=== PATIENT | female | born 1950 | race Caucasian/White ===

== ENCOUNTER → 2017-10-16 08:40 | Outpatient (CLI) | payer MEDICARE, BC, SELFPAY ==
[2017-10-16 10:02] LABS: Add Manual Diff / Slide Review NO; Basophils Percent Auto 0.8 % (0-2); Eosinophils Percent Auto 2.1 % (2-4); Hematocrit 43.1 % (36-46); Hemoglobin 14.8 g/dL (12.0-16.0); Mean Corpuscular HGB Conc 34.3 % (30-36); Mean Corpuscular Hemoglobin 31.3 PG (26-34); Monocytes Percent Auto 8.3 % (3-14); Neutrophils Absolute Auto 4700 /uL (3000-5900); Neutrophils Percent Auto 62.8 % (50-75); Platelet Count 256 X10^3/uL (150-400); Red Blood Cell Count 4.73 X10^6/uL (4.0-5.2); Red Cell Distribution Width 13.5 % (11.6-14.8); White Blood Cell Count 7.5 X10^3/uL (4.5-11.0)
[2017-10-16 10:34] LABS: Cholesterol 172 mg/dL (140-199); HDL Cholesterol 42 mg/dL (40-60); LDL Cholesterol Calculated 103 mg/dL (<100); Triglycerides 137 mg/dL (35-150)
[2017-10-16 10:46] LABS: Vitamin D 25 Hydroxy (D3) 38.7 ng/mL (30.0-100.0)
[2017-10-16 10:59] LABS: TSH w/ Reflex to FT4 2.27 uIU/mL (0.47-4.68)
== END ==
PROVIDERS: PCP Internal Medicine; Visit Provider Internal Medicine
DX: Z78.0 Asymptomatic menopausal state (principal); Z13.820 Encounter for screening for osteoporosis; Z00.00 Encounter for general adult medical examination without abnormal findings; R53.83 Other fatigue; L65.9 Nonscarring hair loss, unspecified
CPT/HCPCS: 36415; 77080; 80061; 82306; 84443; 85025

== ENCOUNTER → 2017-10-25 12:26 | Outpatient (CLI) | payer MEDICARE, BC, SELFPAY ==
--- NOTE | 2017-10-25 | DI.MG.S_ITS ---
BILATERAL DIGITAL SCREENING MAMMOGRAM 3D/2D WITH CAD: 10/25/2017 CLINICAL: Routine screening. Family history of breast cancer. Comparison is made to exams dated: 10/11/2016 mammogram, 09/02/2015 mammogram, and 08/17/2013 mammogram - [facility]. The tissue of both breasts is heterogeneously dense. This may lower the sensitivity of mammography. Current study was also evaluated with a Computer Aided Detection (CAD) system. No significant masses, calcifications, or other findings are seen in either breast. There has been no significant interval change. IMPRESSION: NEGATIVE There is no mammographic evidence of malignancy. A 1 year screening mammogram is recommended. This exam was interpreted at Station ID: [id number]. NOTE: For mammograms, a report in lay terms will be sent to the patient. Approximately 15% of breast malignancies will not be visualized mammographically. In the management of a palpable breast mass, a negative mammogram must not discourage biopsy of a clinically suspicious lesion. Electronically Signed By: Diogenes burrows/jason:10/25/2017 15:09:07 letter sent: Normal Exam ACR BI-RADS Category 1: Negative [id number]
== END ==
PROVIDERS: PCP Internal Medicine; Visit Provider Internal Medicine
DX: Z12.31 Encounter for screening mammogram for malignant neoplasm of breast (principal); Z80.3 Family history of malignant neoplasm of breast
CPT/HCPCS: 77063; 77067

== ENCOUNTER 2018-06-26 11:15 | Outpatient (RCR) | payer MEDICARE, BC, SELFPAY ==
--- NOTE | 2018-04-23 17:00 | PT.OIE ---
Current Diagnoses Achilles tendinitis, left leg (04/23/18) Provider Visit Care Team Role Provider Type Tea Alanis MD Primary Care Provider Physician Specialty: Internal Medicine Address: [address] [place] [address], [address] Email: Sofy Triplett DPM Attending Provider Non-Staff Specialty: Podiatry Address: [address] [place], [address] Email: Physical Therapy Initial Evaluation PT-OP-A Visit Information Start: 04/23/18 07:57 Freq: Status: Active Protocol: Document 04/23/18 08:19 SAK (Rec: 04/23/18 09:03 SAK [id number]) Out-Patient Physical Therapy Visit Information Visit Information Visit Type Initial Evaluation Visit Start Time 08:25 Visit Stop Time 09:18 Total Visit Minutes 48 Visit Number 1 Number of ANESTHESIOLOGY PHYSICIAN Visits 0 PT-OP-B Current Condition Start: 04/23/18 07:57 Freq: Status: Active Protocol: Document 04/23/18 08:19 SAK (Rec: 04/23/18 09:03 SAK [id number]) Current Condition History of Current Condition Onset Date 1 yr Current Complaints left heel pain History of Current Condition gradual onset function- limiting left heel pain which patient reports seemed to come on while she was on vacation which included a lot of walking and hiking. Pain improved with injection but has gradually returned. Has been resting, wearing shoes without backs. Initially reports she did lots of icing and stretching as recommended but not much recently due to uncertainty about whether it was helping. States limping due to heel pain has increased her back pain. Frustrated by persistent pain. Prior Treatments and Tests Injection left heel 12/11 with improvement but gradual return of pain. Wore boot for 1 month, now wears night splint. No squattingl, lunges,, stairs, or hills per physician recommendation. Went to [facility] for scraping therapy without benefit. Wearing heel lifts and heel pads . Also wears soft ankle brace at times which she reports is of some benefit. Treatment Goals Patient/Caregiver Goals Minimize pain and return to more active lifestyle Prior Functional Status Baseline Function- ADL's Independent Baseline Function- Mobility Independent Baseline Function- Gait independent, minimal pain Current Functional Impairments (Reported) Functional Limitations- ADL's painful Functional Limitations- Mobility/Gait painful, no elevation, limited distance Personal Factors Other Personal Factors That May Effect LBP, shoulder fracture 08/11. Therapy/Recovery PT-OP-G Mobility & Gait Start: 04/23/18 07:57 Freq: Status: Active Protocol: Document 04/23/18 08:19 SAK (Rec: 04/23/18 16:55 [facility] [id number]) OP Gait Assessment Gait Gait Assistance Required: Independent Assistive Devices Assistive Device None Gait Deviations General Gait Pattern Antalgic Factors Limiting Gait Function Factors Limiting Gait Function Limited Range of Motion Pain PT-OP-J Posture/Palpation/Skin Start: 04/23/18 07:57 Freq: Status: Active Protocol: Document 04/23/18 08:19 SAK (Rec: 04/23/18 16:57 SAK [id number]) Palpation Assessment Location left achilles Palpation Findings Tenderness Palpation Details TTP Achilles insertion, posterior to medial malleolus PT-OP-K Range of Motion Start: 04/23/18 07:57 Freq: Status: Active Protocol: Document 04/23/18 08:19 SAK (Rec: 04/23/18 16:55 [facility] [id number]) Knee Goniometric Range of Motion Knee ROM Limitations Comments WNL tyler Ankle and Foot Goniometric Range of Motion Ankle and Foot Measured in Degrees Left Ankle/Foot ROM WFL No Testing Position Sitting Dorsiflexion with Knee Flexed 0 Dorsiflexion with Knee Extended 5 Plantarflexion 55 Inversion 25 Eversion 20 right Testing Position Sitting Dorsiflexion with Knee Flexed 10 Dorsiflexion with Knee Extended 5 Plantarflexion 55 Inversion 25 Eversion 20 Ankle and Foot ROM Limitations ROM Limitations Soft Tissue Tightness Pain PT-OP-M Strength Start: 04/23/18 07:57 Freq: Status: Active Protocol: Document 04/23/18 08:19 SAK (Rec: 04/23/18 16:58 SAK [id number]) Ankle/Foot Strength Ankle and Foot Manual Muscle Testing Left Dorsiflexion (L4) 4+ Good+ Plantarflexion (S1) 4 Good Inversion 4 Good Eversion (S1) 4 Good Reason Not Measured Pain Right Dorsiflexion (L4) 5 Normal Plantarflexion (S1) 5 Normal Inversion 5 Normal Eversion (S1) 5 Normal PT-OP-Q Treatments Start: 04/23/18 07:57 Freq: Status: Active Protocol: Document 04/23/18 08:19 [facility] (Rec: 04/23/18 16:53 [facility] [id number]) Self-Care/Home Management Treatment Education Patient Education Home Exercise Program Pain Management Other Education Issued written HEP Activities Self-Care/Home Management Activities Increase icing, consider contrast baths PT-OP-R Modalities Start: 04/23/18 07:57 Freq: Status: Active Protocol: Document 04/23/18 08:19 [facility] (Rec: 04/23/18 16:53 [facility] [id number]) Hot Pack/Cold Pack Treatment cryocuff Location left foot/ankle Patient Position Hooklying Treatment Duration (minutes) 10 Patient Tolerance Good Iontophoresis Treatment Left Ankle Treatment Medication Dexamethasone (-) Medication Amount (mL) (ml) 1 Medication Dosage 4mg/ml Active Electrode Placement left Achilles insertion Treatment Duration (minutes) 3 Ultrasound Therapy Treatment left achilles Treatment Duration (minutes) 8 Patient Position Sidelying Coupling Medium Ultrasound Gel Frequency Setting (mHz) 1 Mode Setting Pulsed Duty Cycle 50% Intensity Setting (w/cm2) 1.0 PT-OP-T Assessment and Plan Start: 04/23/18 07:57 Freq: Status: Active Protocol: Document 04/23/18 08:19 [facility] (Rec: 04/23/18 16:53 [facility] [id number]) Physical Therapy Assessment Rehab Potential Rehabilitation Potential Excellent Evaluation Complexity Number of Personal Factors/Comorbidities 1-2 Number of Body Systems Impaired 3 Clinical Presentation at Evaluation Evolving Impairments Impairments Activity Tolerance Gait Pain ROM Goals Pain Impairment 8/10 Short Term Goal (STG) decrease pain to no greater than 4/10 STG Duration 6 wks Mcc Goal (LTG) decrease pain to no greater than 1/10 LTG Duration 3 months ROM Impairment left ankle df 0 deg Short Term Goal (STG) instruct patient in achilles stretching ex STG Duration 3 wks Mcc Goal (LTG) patient to demonstrate left ankle df 10 degrees LTG Duration 3 months Gait Impairment antalgic Short Term Goal (STG) Patient able to ambulate on level surfaces without limp STG Duration 6 wks Mcc Goal (LTG) patient able to ambulate on level and uneven surfaces for usual distances without limp LTG Duration 3 months Activity tolerance Impairment Unable to do usual activities due to pain Mcc Goal (LTG) Patient able to resume all usual activities with minimal to no pain LTG Duration 3 months Assessment Summary Assessment Patient presents with function -limiting pain left Achilles with signs and symptoms indicative of Achilles tendonitis with MRI showing distal Achilles tendinopathy and retrocalcaneal bursitis, longitudinal split tear of peroneus brevis tendon at retromalleolar groove, small heterotopic ossification deltoid ligament fibers. Mild decrease in strength in left ankle inversion and eversion as well as shortening at left Achilles tendon noted. Feel she would benefit from PT to address above impairments and limitations. Physical Therapy Plan Frequency and Duration Frequency of Treatment 2x/Week Duration of Treatment 3 months Plan of Care Start Date 04/23/18 Plan of Care End Date 07/24/18 Therapeutic Interventions Therapeutic Interventions Aquatic Therapy Gait Training Home Exercise Program Manual Therapy Neuromuscular Re-education Patient/Caregiver Education Self-Care/Home Management Taping Therapeutic Activities Therapeutic Exercises Modalities Cold Pack/Ice Massage Electric Stimulation Hot Packs Infrared Therapy Iontophoresis Ultrasound Next Visit Focus/Plan Next Note Type Treatment Note Next Visit Plan Start session with moist heat. Assess response to first PT treatment. Initiate kinesiotape, manual treatment of achilles with gentle stretching. Possible ice massage.
--- NOTE | 2018-04-23 17:00 | PT.OPPOC ---
Current Diagnoses Achilles tendinitis, left leg (04/23/18) Provider Visit Care Team Role Provider Type Tea Alanis MD Primary Care Provider Physician Specialty: Internal Medicine Address: [address] [place] [address], [id number] Email: Sofy Triplett DPM Attending Provider Non-Staff Specialty: Podiatry Address: [address] [place], [address] Email: Plan Of Care PT-OP-T Assessment and Plan Start: 04/23/18 07:57 Freq: Status: Active Protocol: Document 04/23/18 08:19 CAROLE (Rec: 04/23/18 16:53 [facility] [id number]) Physical Therapy Assessment Rehab Potential Rehabilitation Potential Excellent Evaluation Complexity Number of Personal Factors/Comorbidities 1-2 Number of Body Systems Impaired 3 Clinical Presentation at Evaluation Evolving Impairments Impairments Activity Tolerance Gait Pain ROM Goals Pain Impairment 8/10 Short Term Goal (STG) decrease pain to no greater than 4/10 STG Duration 6 wks Prison Goal (LTG) decrease pain to no greater than 1/10 LTG Duration 3 months ROM Impairment left ankle df 0 deg Short Term Goal (STG) instruct patient in achilles stretching ex STG Duration 3 wks Prison Goal (LTG) patient to demonstrate left ankle df 10 degrees LTG Duration 3 months Gait Impairment antalgic Short Term Goal (STG) Patient able to ambulate on level surfaces without limp STG Duration 6 wks Prison Goal (LTG) patient able to ambulate on level and uneven surfaces for usual distances without limp LTG Duration 3 months Activity tolerance Impairment Unable to do usual activities due to pain Prison Goal (LTG) Patient able to resume all usual activities with minimal to no pain LTG Duration 3 months Assessment Summary Assessment Patient presents with function -limiting pain left Achilles with signs and symptoms indicative of Achilles tendonitis with MRI showing distal Achilles tendinopathy and retrocalcaneal bursitis, longitudinal split tear of peroneus brevis tendon at retromalleolar groove, small heterotopic ossification deltoid ligament fibers. Mild decrease in strength in left ankle inversion and eversion as well as shortening at left Achilles tendon noted. Feel she would benefit from PT to address above impairments and limitations. Physical Therapy Plan Frequency and Duration Frequency of Treatment 2x/Week Duration of Treatment 3 months Plan of Care Start Date 04/23/18 Plan of Care End Date 07/24/18 Therapeutic Interventions Therapeutic Interventions Aquatic Therapy Gait Training Home Exercise Program Manual Therapy Neuromuscular Re-education Patient/Caregiver Education Self-Care/Home Management Taping Therapeutic Activities Therapeutic Exercises Modalities Cold Pack/Ice Massage Electric Stimulation Hot Packs Infrared Therapy Iontophoresis Ultrasound Next Visit Focus/Plan Next Note Type Treatment Note Next Visit Plan Start session with moist heat. Assess response to first PT treatment. Initiate kinesiotape, manual treatment of achilles with gentle stretching. Possible ice massage. Plan of Care Dates Plan of Care Start Date 04/23/18 Plan of Care End Date 07/24/18 Please Sign and Return: I have reviewed this Plan of Care and certify that the skilled therapy services above are required to meet the patient?s needs. Physician Signature Date Printed Name and Credentials Clinical Instructor Signature Printed Name and Credentials
--- NOTE | 2018-04-25 08:57 | PT.OTN ---
Current Diagnoses Achilles tendinitis, left leg (04/25/18) Physical Therapy Treatment Note PT-OP-A Visit Information Start: 04/23/18 07:57 Freq: Status: Active Protocol: Document 04/25/18 08:12 SAK (Rec: 04/25/18 08:56 [facility] [id number]) Out-Patient Physical Therapy Visit Information Visit Information Visit Type Treatment Note Visit Start Time 08:13 Visit Stop Time 08:59 Total Visit Minutes 46 Visit Number 2 Number of WATER USE INSPECTOR Visits 0 PT-OP-B Current Condition Start: 04/23/18 07:57 Freq: Status: Active Protocol: Document 04/23/18 08:19 SAK (Rec: 04/23/18 09:03 SAK [id number]) Current Condition History of Current Condition Onset Date 1 yr Current Complaints left heel pain History of Current Condition gradual onset function- limiting left heel pain which patient reports seemed to come on while she was on vacation which included a lot of walking and hiking. Pain improved with injection but has gradually returned. Has been resting, wearing shoes without backs. Initially reports she did lots of icing and stretching as recommended but not much recently due to uncertainty about whether it was helping. States limping due to heel pain has increased her back pain. Frustrated by persistent pain. Prior Treatments and Tests Injection left heel 12/11 with improvement but gradual return of pain. Wore boot for 1 month, now wears night splint. No squattingl, lunges,, stairs, or hills per physician recommendation. Went to IR for scraping therapy without benefit. Wearing heel lifts and heel pads . Also wears soft ankle brace at times which she reports is of some benefit. Treatment Goals Patient/Caregiver Goals Minimize pain and return to more active lifestyle Prior Functional Status Baseline Function- ADL's Independent Baseline Function- Mobility Independent Baseline Function- Gait independent, minimal pain Current Functional Impairments (Reported) Functional Limitations- ADL's painful Functional Limitations- Mobility/Gait painful, no elevation, limited distance Personal Factors Other Personal Factors That May Effect LBP, shoulder fracture 08/11. Therapy/Recovery PT-OP-C Subjective Start: 04/23/18 07:57 Freq: Status: Active Protocol: Document 04/25/18 08:12 SAK (Rec: 04/25/18 08:56 [facility] [id number]) OP-PT Subjective Patient Comments Patient Comments Decreased pain after first treatment PT-OP-G Mobility & Gait Start: 04/23/18 07:57 Freq: Status: Active Protocol: Document 04/23/18 08:19 SAK (Rec: 04/23/18 16:55 SAK [id number]) OP Gait Assessment Gait Gait Assistance Required: Independent Assistive Devices Assistive Device None Gait Deviations General Gait Pattern Antalgic Factors Limiting Gait Function Factors Limiting Gait Function Limited Range of Motion Pain PT-OP-J Posture/Palpation/Skin Start: 04/23/18 07:57 Freq: Status: Active Protocol: Document 04/23/18 08:19 SAK (Rec: 04/23/18 16:57 SAK [id number]) Palpation Assessment Location left achilles Palpation Findings Tenderness Palpation Details TTP Achilles insertion, posterior to medial malleolus PT-OP-K Range of Motion Start: 04/23/18 07:57 Freq: Status: Active Protocol: Document 04/23/18 08:19 SAK (Rec: 04/23/18 16:55 SAK [id number]) Knee Goniometric Range of Motion Knee ROM Limitations Comments WNL tyler Ankle and Foot Goniometric Range of Motion Ankle and Foot Measured in Degrees Left Ankle/Foot ROM WFL No Testing Position Sitting Dorsiflexion with Knee Flexed 0 Dorsiflexion with Knee Extended 5 Plantarflexion 55 Inversion 25 Eversion 20 right Testing Position Sitting Dorsiflexion with Knee Flexed 10 Dorsiflexion with Knee Extended 5 Plantarflexion 55 Inversion 25 Eversion 20 Ankle and Foot ROM Limitations ROM Limitations Soft Tissue Tightness Pain PT-OP-M Strength Start: 04/23/18 07:57 Freq: Status: Active Protocol: Document 04/23/18 08:19 SAK (Rec: 04/23/18 16:58 SAK [id number]) Ankle/Foot Strength Ankle and Foot Manual Muscle Testing Left Dorsiflexion (L4) 4+ Good+ Plantarflexion (S1) 4 Good Inversion 4 Good Eversion (S1) 4 Good Reason Not Measured Pain Right Dorsiflexion (L4) 5 Normal Plantarflexion (S1) 5 Normal Inversion 5 Normal Eversion (S1) 5 Normal PT-OP-Q Treatments Start: 04/23/18 07:57 Freq: Status: Active Protocol: Document 04/25/18 08:12 SAK (Rec: 04/25/18 08:56 SAK [id number]) Cardio Equipment Recumbent Elliptical (Biodex) Duration (Minutes) 5 Resistance 4 Seat Position 9 Therapeutic Exercises Sitting Exercises foot ev Resistance L2 TB Reps/Minutes 10 foot inv Resistance L2 TB Reps/Minutes 10 HC stretch Comments knee bent, knee straight with strap Manual Therapy Treatment Soft Tissue Mobilization gastroc, soleus Body Location left gastroc, soleus Mobilization Type Rolling Strumming Intensity/Depth Moderate Body Position right sidelying PT-OP-R Modalities Start: 04/23/18 07:57 Freq: Status: Active Protocol: Document 04/25/18 08:12 [facility] (Rec: 04/25/18 08:56 [facility] [id number]) Hot Pack/Cold Pack Treatment cryocuff Location left foot/ankle Patient Position Hooklying Treatment Duration (minutes) 10 Patient Tolerance Good Iontophoresis Treatment Left Ankle Treatment Medication Dexamethasone (-) Medication Amount (mL) (ml) 1 Medication Dosage 4mg/ml Active Electrode Placement left Achilles insertion Treatment Duration (minutes) 3 Ultrasound Therapy Treatment left achilles Treatment Duration (minutes) 8 Patient Position Sidelying Coupling Medium Ultrasound Gel Frequency Setting (mHz) 1 Mode Setting Pulsed Duty Cycle 50% Intensity Setting (w/cm2) 1.0 PT-OP-T Assessment and Plan Start: 04/23/18 07:57 Freq: Status: Active Protocol: Document 04/25/18 08:12 [facility] (Rec: 04/25/18 08:56 [facility] [id number]) Physical Therapy Assessment Goals Pain Impairment 8/10 Short Term Goal (STG) decrease pain to no greater than 4/10 STG Duration 6 wks Half-Way Goal (LTG) decrease pain to no greater than 1/10 LTG Duration 3 months ROM Impairment left ankle df 0 deg Short Term Goal (STG) instruct patient in achilles stretching ex STG Duration 3 wks Tubing Machine Operator Goal (LTG) patient to demonstrate left ankle df 10 degrees LTG Duration 3 months Gait Impairment antalgic Short Term Goal (STG) Patient able to ambulate on level surfaces without limp STG Duration 6 wks Tubing Machine Operator Goal (LTG) patient able to ambulate on level and uneven surfaces for usual distances without limp LTG Duration 3 months Activity tolerance Impairment Unable to do usual activities due to pain Tubing Machine Operator Goal (LTG) Patient able to resume all usual activities with minimal to no pain LTG Duration 3 months Assessment Summary Assessment Decreased pain with first PT treatment, compliant to HEP, heat and ice as instructed. Wore backless shoes today Physical Therapy Plan Frequency and Duration Frequency of Treatment 2x/Week Duration of Treatment 3 months Plan of Care Start Date 04/23/18 Plan of Care End Date 07/24/18 Therapeutic Interventions Therapeutic Interventions Aquatic Therapy Gait Training Home Exercise Program Manual Therapy Neuromuscular Re-education Patient/Caregiver Education Self-Care/Home Management Taping Therapeutic Activities Therapeutic Exercises Modalities Cold Pack/Ice Massage Electric Stimulation Hot Packs Infrared Therapy Iontophoresis Ultrasound Next Visit Focus/Plan Next Note Type Treatment Note Next Visit Plan Used gentle exerise instead of moist heat for warming of tissues. Good response to first session so stayed with iontohoresis instead of kinesiotape. Reported manual treatment felt good, palpable soft tissue tightness. Initiate gentle balance/ proprioception ex, towel scrunch, short foot ex as toleated.
--- NOTE | 2018-04-29 12:00 | PT.OTN ---
Current Diagnoses Achilles tendinitis, left leg (04/29/18) Physical Therapy Treatment Note PT-OP-A Visit Information Start: 04/23/18 07:57 Freq: Status: Active Protocol: Document 04/29/18 11:15 SAK (Rec: 04/29/18 12:00 [facility] [id number]) Out-Patient Physical Therapy Visit Information Visit Information Visit Type Treatment Note Visit Start Time 11:15 Visit Stop Time 12:00 Total Visit Minutes 46 Visit Number 3 Number of PRINCIPAL ARCHITECT Visits 0 PT-OP-B Current Condition Start: 04/23/18 07:57 Freq: Status: Active Protocol: Document 04/23/18 08:19 SAK (Rec: 04/23/18 09:03 [facility] [id number]) Current Condition History of Current Condition Onset Date 1 yr Current Complaints left heel pain History of Current Condition gradual onset function- limiting left heel pain which patient reports seemed to come on while she was on vacation which included a lot of walking and hiking. Pain improved with injection but has gradually returned. Has been resting, wearing shoes without backs. Initially reports she did lots of icing and stretching as recommended but not much recently due to uncertainty about whether it was helping. States limping due to heel pain has increased her back pain. Frustrated by persistent pain. Prior Treatments and Tests Injection left heel 12/11 with improvement but gradual return of pain. Wore boot for 1 month, now wears night splint. No squattingl, lunges,, stairs, or hills per physician recommendation. Went to IR for scraping therapy without benefit. Wearing heel lifts and heel pads . Also wears soft ankle brace at times which she reports is of some benefit. Treatment Goals Patient/Caregiver Goals Minimize pain and return to more active lifestyle Prior Functional Status Baseline Function- ADL's Independent Baseline Function- Mobility Independent Baseline Function- Gait independent, minimal pain Current Functional Impairments (Reported) Functional Limitations- ADL's painful Functional Limitations- Mobility/Gait painful, no elevation, limited distance Personal Factors Other Personal Factors That May Effect LBP, shoulder fracture 08/11. Therapy/Recovery PT-OP-C Subjective Start: 04/23/18 07:57 Freq: Status: Active Protocol: Document 04/29/18 11:15 SAK (Rec: 04/29/18 12:00 [facility] [id number]) OP-PT Subjective Patient Comments Patient Comments THink it's a little better. PT-OP-G Mobility & Gait Start: 04/23/18 07:57 Freq: Status: Active Protocol: Document 04/23/18 08:19 SAK (Rec: 04/23/18 16:55 SAK [id number]) OP Gait Assessment Gait Gait Assistance Required: Independent Assistive Devices Assistive Device None Gait Deviations General Gait Pattern Antalgic Factors Limiting Gait Function Factors Limiting Gait Function Limited Range of Motion Pain PT-OP-J Posture/Palpation/Skin Start: 04/23/18 07:57 Freq: Status: Active Protocol: Document 04/23/18 08:19 SAK (Rec: 04/23/18 16:57 SAK [id number]) Palpation Assessment Location left achilles Palpation Findings Tenderness Palpation Details TTP Achilles insertion, posterior to medial malleolus PT-OP-K Range of Motion Start: 04/23/18 07:57 Freq: Status: Active Protocol: Document 04/23/18 08:19 SAK (Rec: 04/23/18 16:55 [facility] [id number]) Knee Goniometric Range of Motion Knee ROM Limitations Comments WNL tyler Ankle and Foot Goniometric Range of Motion Ankle and Foot Measured in Degrees Left Ankle/Foot ROM WFL No Testing Position Sitting Dorsiflexion with Knee Flexed 0 Dorsiflexion with Knee Extended 5 Plantarflexion 55 Inversion 25 Eversion 20 right Testing Position Sitting Dorsiflexion with Knee Flexed 10 Dorsiflexion with Knee Extended 5 Plantarflexion 55 Inversion 25 Eversion 20 Ankle and Foot ROM Limitations ROM Limitations Soft Tissue Tightness Pain PT-OP-M Strength Start: 04/23/18 07:57 Freq: Status: Active Protocol: Document 04/23/18 08:19 SAK (Rec: 04/23/18 16:58 SAK [id number]) Ankle/Foot Strength Ankle and Foot Manual Muscle Testing Left Dorsiflexion (L4) 4+ Good+ Plantarflexion (S1) 4 Good Inversion 4 Good Eversion (S1) 4 Good Reason Not Measured Pain Right Dorsiflexion (L4) 5 Normal Plantarflexion (S1) 5 Normal Inversion 5 Normal Eversion (S1) 5 Normal PT-OP-Q Treatments Start: 04/23/18 07:57 Freq: Status: Active Protocol: Document 04/29/18 11:15 SAK (Rec: 04/29/18 12:00 [facility] [id number]) Cardio Equipment Recumbent Elliptical (Biodex) Duration (Minutes) 5 Resistance 4 Seat Position 9 Therapeutic Exercises Sitting Exercises towel scrunch Reps/Minutes 15x BAPS board Sitting Exercise Name fwd/bck, side/side, circles Reps/Minutes 10x Comments L2 foot ev Resistance L2 TB Reps/Minutes 10 foot inv Resistance L2 TB Reps/Minutes 10 HC stretch Comments knee bent, knee straight with strap Manual Therapy Treatment Soft Tissue Mobilization gastroc, soleus Body Location left gastroc, soleus Mobilization Type Rolling Strumming Intensity/Depth Moderate Body Position right sidelying PT-OP-R Modalities Start: 04/23/18 07:57 Freq: Status: Active Protocol: Document 04/29/18 11:15 [facility] (Rec: 04/29/18 12:00 [facility] [id number]) Hot Pack/Cold Pack Treatment cryocuff Location left foot/ankle Patient Position Hooklying Treatment Duration (minutes) 10 Patient Tolerance Good Iontophoresis Treatment Left Ankle Treatment Medication Dexamethasone (-) Medication Amount (mL) (ml) 1 Medication Dosage 4mg/ml Active Electrode Placement left Achilles insertion Treatment Duration (minutes) 3 Ultrasound Therapy Treatment left achilles Treatment Duration (minutes) 8 Patient Position Sidelying Coupling Medium Ultrasound Gel Frequency Setting (mHz) 1 Mode Setting Pulsed Duty Cycle 50% Intensity Setting (w/cm2) 1.0 PT-OP-T Assessment and Plan Start: 04/23/18 07:57 Freq: Status: Active Protocol: Document 04/29/18 11:15 [facility] (Rec: 04/29/18 12:00 [facility] [id number]) Physical Therapy Assessment Goals Pain Impairment 8/10 Short Term Goal (STG) decrease pain to no greater than 4/10 STG Duration 6 wks Patient Care Coordinator Goal (LTG) decrease pain to no greater than 1/10 LTG Duration 3 months ROM Impairment left ankle df 0 deg Short Term Goal (STG) instruct patient in achilles stretching ex STG Duration 3 wks Patient Care Coordinator Goal (LTG) patient to demonstrate left ankle df 10 degrees LTG Duration 3 months Gait Impairment antalgic Short Term Goal (STG) Patient able to ambulate on level surfaces without limp STG Duration 6 wks Senior Care Goal (LTG) patient able to ambulate on level and uneven surfaces for usual distances without limp LTG Duration 3 months Activity tolerance Impairment Unable to do usual activities due to pain Patient Care Coordinator Goal (LTG) Patient able to resume all usual activities with minimal to no pain LTG Duration 3 months Progress Towards Goals Progress Towards Goals Progressing Toward Goals Assessment Summary Assessment Tolerated today's treatment well, compliant with HEP and icing. Physical Therapy Plan Frequency and Duration Frequency of Treatment 2x/Week Duration of Treatment 3 months Plan of Care Start Date 04/23/18 Plan of Care End Date 07/24/18 Therapeutic Interventions Therapeutic Interventions Aquatic Therapy Gait Training Home Exercise Program Manual Therapy Neuromuscular Re-education Patient/Caregiver Education Self-Care/Home Management Taping Therapeutic Activities Therapeutic Exercises Modalities Cold Pack/Ice Massage Electric Stimulation Hot Packs Infrared Therapy Iontophoresis Ultrasound Next Visit Focus/Plan Next Note Type Treatment Note Next Visit Plan Continue PT for pain management, gentle strengthening and flexibility. Add short foot exercise next session.
--- NOTE | 2018-05-04 10:46 | PT.OTN ---
Current Diagnoses Achilles tendinitis, left leg (05/01/18) Physical Therapy Treatment Note PT-OP-A Visit Information Start: 04/23/18 07:57 Freq: Status: Active Protocol: Document 05/01/18 11:17 SAK (Rec: 05/01/18 12:10 [facility] [id number]) Out-Patient Physical Therapy Visit Information Visit Information Visit Type Treatment Note Visit Start Time 11:15 Visit Stop Time 12:01 Total Visit Minutes 51 Visit Number 4 Number of OILER AND GREASER Visits 0 PT-OP-B Current Condition Start: 04/23/18 07:57 Freq: Status: Active Protocol: Document 04/23/18 08:19 SAK (Rec: 04/23/18 09:03 [facility] [id number]) Current Condition History of Current Condition Onset Date 1 yr Current Complaints left heel pain History of Current Condition gradual onset function- limiting left heel pain which patient reports seemed to come on while she was on vacation which included a lot of walking and hiking. Pain improved with injection but has gradually returned. Has been resting, wearing shoes without backs. Initially reports she did lots of icing and stretching as recommended but not much recently due to uncertainty about whether it was helping. States limping due to heel pain has increased her back pain. Frustrated by persistent pain. Prior Treatments and Tests Injection left heel 12/11 with improvement but gradual return of pain. Wore boot for 1 month, now wears night splint. No squattingl, lunges,, stairs, or hills per physician recommendation. Went to IR for scraping therapy without benefit. Wearing heel lifts and heel pads . Also wears soft ankle brace at times which she reports is of some benefit. Treatment Goals Patient/Caregiver Goals Minimize pain and return to more active lifestyle Prior Functional Status Baseline Function- ADL's Independent Baseline Function- Mobility Independent Baseline Function- Gait independent, minimal pain Current Functional Impairments (Reported) Functional Limitations- ADL's painful Functional Limitations- Mobility/Gait painful, no elevation, limited distance Personal Factors Other Personal Factors That May Effect LBP, shoulder fracture 08/11. Therapy/Recovery PT-OP-C Subjective Start: 04/23/18 07:57 Freq: Status: Active Protocol: Document 05/01/18 11:17 SAK (Rec: 05/01/18 12:10 [facility] [id number]) OP-PT Subjective Patient Comments Patient Comments No new c/o, compliant to HEP. PT-OP-G Mobility & Gait Start: 04/23/18 07:57 Freq: Status: Active Protocol: Document 04/23/18 08:19 SAK (Rec: 04/23/18 16:55 SAK [id number]) OP Gait Assessment Gait Gait Assistance Required: Independent Assistive Devices Assistive Device None Gait Deviations General Gait Pattern Antalgic Factors Limiting Gait Function Factors Limiting Gait Function Limited Range of Motion Pain PT-OP-J Posture/Palpation/Skin Start: 04/23/18 07:57 Freq: Status: Active Protocol: Document 04/23/18 08:19 SAK (Rec: 04/23/18 16:57 SAK [id number]) Palpation Assessment Location left achilles Palpation Findings Tenderness Palpation Details TTP Achilles insertion, posterior to medial malleolus PT-OP-K Range of Motion Start: 04/23/18 07:57 Freq: Status: Active Protocol: Document 04/23/18 08:19 SAK (Rec: 04/23/18 16:55 [facility] [id number]) Knee Goniometric Range of Motion Knee ROM Limitations Comments WNL tyler Ankle and Foot Goniometric Range of Motion Ankle and Foot Measured in Degrees Left Ankle/Foot ROM WFL No Testing Position Sitting Dorsiflexion with Knee Flexed 0 Dorsiflexion with Knee Extended 5 Plantarflexion 55 Inversion 25 Eversion 20 right Testing Position Sitting Dorsiflexion with Knee Flexed 10 Dorsiflexion with Knee Extended 5 Plantarflexion 55 Inversion 25 Eversion 20 Ankle and Foot ROM Limitations ROM Limitations Soft Tissue Tightness Pain PT-OP-M Strength Start: 04/23/18 07:57 Freq: Status: Active Protocol: Document 04/23/18 08:19 SAK (Rec: 04/23/18 16:58 SAK [id number]) Ankle/Foot Strength Ankle and Foot Manual Muscle Testing Left Dorsiflexion (L4) 4+ Good+ Plantarflexion (S1) 4 Good Inversion 4 Good Eversion (S1) 4 Good Reason Not Measured Pain Right Dorsiflexion (L4) 5 Normal Plantarflexion (S1) 5 Normal Inversion 5 Normal Eversion (S1) 5 Normal PT-OP-Q Treatments Start: 04/23/18 07:57 Freq: Status: Active Protocol: Document 05/01/18 11:17 SAK (Rec: 05/01/18 12:10 [facility] [id number]) Cardio Equipment Recumbent Elliptical (Biodex) Duration (Minutes) 7 Resistance 4 Seat Position 8 Therapeutic Exercises Sitting Exercises ankle circles Reps/Minutes 10x ea CW, CCW lindy pick up driver Reps/Minutes 10x towel scrunch Reps/Minutes 15x BAPS board Sitting Exercise Name fwd/bck, side/side, circles Reps/Minutes 10x Comments L2 foot ev Resistance L2 TB Reps/Minutes 10 foot inv Resistance L2 TB Reps/Minutes 10 HC stretch Comments knee bent, knee straight with strap Standing Exercises HC stretch Reps/Minutes 2x Manual Therapy Treatment Soft Tissue Mobilization gastroc, soleus Body Location left gastroc, soleus Mobilization Type Rolling Strumming Intensity/Depth Moderate Body Position right sidelying PT-OP-R Modalities Start: 04/23/18 07:57 Freq: Status: Active Protocol: Document 05/01/18 11:17 [facility] (Rec: 05/01/18 12:10 [facility] [id number]) Hot Pack/Cold Pack Treatment cryocuff Location left foot/ankle Patient Position Hooklying Treatment Duration (minutes) 10 Patient Tolerance Good PT-OP-T Assessment and Plan Start: 04/23/18 07:57 Freq: Status: Active Protocol: Document 05/01/18 11:17 [facility] (Rec: 05/04/18 10:46 [facility] [id number]) Physical Therapy Assessment Goals Pain Impairment 8/10 Short Term Goal (STG) decrease pain to no greater than 4/10 STG Duration 6 wks Button Spindler Goal (LTG) decrease pain to no greater than 1/10 LTG Duration 3 months ROM Impairment left ankle df 0 deg Short Term Goal (STG) instruct patient in achilles stretching ex STG Duration 3 wks Half-Way Goal (LTG) patient to demonstrate left ankle df 10 degrees LTG Duration 3 months Gait Impairment antalgic Short Term Goal (STG) Patient able to ambulate on level surfaces without limp STG Duration 6 wks Half-Way Goal (LTG) patient able to ambulate on level and uneven surfaces for usual distances without limp LTG Duration 3 months Activity tolerance Impairment Unable to do usual activities due to pain Button Spindler Goal (LTG) Patient able to resume all usual activities with minimal to no pain LTG Duration 3 months Progress Towards Goals Progress Towards Goals Progressing Toward Goals Assessment Summary Assessment Tolerated increase in ther ex well, less edema today. Physical Therapy Plan Frequency and Duration Frequency of Treatment 2x/Week Duration of Treatment 3 months Plan of Care Start Date 04/23/18 Plan of Care End Date 07/24/18 Therapeutic Interventions Therapeutic Interventions Aquatic Therapy Gait Training Home Exercise Program Manual Therapy Neuromuscular Re-education Patient/Caregiver Education Self-Care/Home Management Taping Therapeutic Activities Therapeutic Exercises Modalities Cold Pack/Ice Massage Electric Stimulation Hot Packs Infrared Therapy Iontophoresis Ultrasound Next Visit Focus/Plan Next Note Type Treatment Note Next Visit Plan Continue PT for pain management, gentle strengthening and flexibility. Add short foot exercise next session.
--- NOTE | 2018-05-06 15:15 | PT.OTN ---
Current Diagnoses Achilles tendinitis, left leg (05/06/18) Physical Therapy Treatment Note PT-OP-A Visit Information Start: 04/23/18 07:57 Freq: Status: Active Protocol: Document 05/06/18 14:31 SAK (Rec: 05/06/18 15:14 [facility] [id number]) Out-Patient Physical Therapy Visit Information Visit Information Visit Type Treatment Note Visit Start Time 14:30 Visit Stop Time 15:35 Total Visit Minutes 50 Visit Number 5 Number of BIOGEOGRAPHER Visits 0 PT-OP-B Current Condition Start: 04/23/18 07:57 Freq: Status: Active Protocol: Document 04/23/18 08:19 SAK (Rec: 04/23/18 09:03 [facility] [id number]) Current Condition History of Current Condition Onset Date 1 yr Current Complaints left heel pain History of Current Condition gradual onset function- limiting left heel pain which patient reports seemed to come on while she was on vacation which included a lot of walking and hiking. Pain improved with injection but has gradually returned. Has been resting, wearing shoes without backs. Initially reports she did lots of icing and stretching as recommended but not much recently due to uncertainty about whether it was helping. States limping due to heel pain has increased her back pain. Frustrated by persistent pain. Prior Treatments and Tests Injection left heel 12/11 with improvement but gradual return of pain. Wore boot for 1 month, now wears night splint. No squattingl, lunges,, stairs, or hills per physician recommendation. Went to IR for scraping therapy without benefit. Wearing heel lifts and heel pads . Also wears soft ankle brace at times which she reports is of some benefit. Treatment Goals Patient/Caregiver Goals Minimize pain and return to more active lifestyle Prior Functional Status Baseline Function- ADL's Independent Baseline Function- Mobility Independent Baseline Function- Gait independent, minimal pain Current Functional Impairments (Reported) Functional Limitations- ADL's painful Functional Limitations- Mobility/Gait painful, no elevation, limited distance Personal Factors Other Personal Factors That May Effect LBP, shoulder fracture 08/11. Therapy/Recovery PT-OP-C Subjective Start: 04/23/18 07:57 Freq: Status: Active Protocol: Document 05/06/18 14:31 SAK (Rec: 05/06/18 15:14 [facility] [id number]) OP-PT Subjective Patient Comments Patient Comments My heel is getting better. PT-OP-G Mobility & Gait Start: 04/23/18 07:57 Freq: Status: Active Protocol: Document 04/23/18 08:19 SAK (Rec: 04/23/18 16:55 SAK [id number]) OP Gait Assessment Gait Gait Assistance Required: Independent Assistive Devices Assistive Device None Gait Deviations General Gait Pattern Antalgic Factors Limiting Gait Function Factors Limiting Gait Function Limited Range of Motion Pain PT-OP-J Posture/Palpation/Skin Start: 04/23/18 07:57 Freq: Status: Active Protocol: Document 04/23/18 08:19 SAK (Rec: 04/23/18 16:57 SAK [id number]) Palpation Assessment Location left achilles Palpation Findings Tenderness Palpation Details TTP Achilles insertion, posterior to medial malleolus PT-OP-K Range of Motion Start: 04/23/18 07:57 Freq: Status: Active Protocol: Document 04/23/18 08:19 SAK (Rec: 04/23/18 16:55 SAK [id number]) Knee Goniometric Range of Motion Knee ROM Limitations Comments WNL tyler Ankle and Foot Goniometric Range of Motion Ankle and Foot Measured in Degrees Left Ankle/Foot ROM WFL No Testing Position Sitting Dorsiflexion with Knee Flexed 0 Dorsiflexion with Knee Extended 5 Plantarflexion 55 Inversion 25 Eversion 20 right Testing Position Sitting Dorsiflexion with Knee Flexed 10 Dorsiflexion with Knee Extended 5 Plantarflexion 55 Inversion 25 Eversion 20 Ankle and Foot ROM Limitations ROM Limitations Soft Tissue Tightness Pain PT-OP-M Strength Start: 04/23/18 07:57 Freq: Status: Active Protocol: Document 04/23/18 08:19 SAK (Rec: 04/23/18 16:58 SAK [id number]) Ankle/Foot Strength Ankle and Foot Manual Muscle Testing Left Dorsiflexion (L4) 4+ Good+ Plantarflexion (S1) 4 Good Inversion 4 Good Eversion (S1) 4 Good Reason Not Measured Pain Right Dorsiflexion (L4) 5 Normal Plantarflexion (S1) 5 Normal Inversion 5 Normal Eversion (S1) 5 Normal PT-OP-Q Treatments Start: 04/23/18 07:57 Freq: Status: Active Protocol: Document 05/06/18 14:31 SAK (Rec: 05/06/18 15:14 [facility] [id number]) Cardio Equipment Recumbent Elliptical (Biodex) Duration (Minutes) 5 Resistance 4 Seat Position 9 Gym Equipment Shuttle Recovery Bilateral Squats Resistance 50 Shuttle Recovery Platform Stable Therapeutic Exercises Sitting Exercises ankle circles Reps/Minutes 10x ea CW, CCW lindy case picker Reps/Minutes 10x towel scrunch Reps/Minutes 15x BAPS board Sitting Exercise Name fwd/bck, side/side, circles Reps/Minutes 10x Comments L2 foot ev Resistance L2 TB Reps/Minutes 10 foot inv Resistance L2 TB Reps/Minutes 10 HC stretch Comments knee bent, knee straight with strap Standing Exercises HC stretch Reps/Minutes 2x Manual Therapy Treatment Soft Tissue Mobilization gastroc, soleus Body Location left gastroc, soleus Mobilization Type Rolling Strumming Intensity/Depth Moderate Body Position right sidelying PT-OP-R Modalities Start: 04/23/18 07:57 Freq: Status: Active Protocol: Document 05/06/18 14:31 [facility] (Rec: 05/06/18 15:14 [facility] [id number]) Hot Pack/Cold Pack Treatment cryocuff Location left foot/ankle Patient Position Hooklying Treatment Duration (minutes) 10 Patient Tolerance Good Iontophoresis Treatment Left Ankle Treatment Medication Dexamethasone (-) Medication Amount (mL) (ml) 1 Medication Dosage 4mg/ml Active Electrode Placement left Achilles insertion Treatment Duration (minutes) 3 Ultrasound Therapy Treatment left achilles Treatment Duration (minutes) 8 Patient Position Sidelying Coupling Medium Ultrasound Gel Frequency Setting (mHz) 1 Mode Setting Pulsed Duty Cycle 50% Intensity Setting (w/cm2) 1.0 PT-OP-T Assessment and Plan Start: 04/23/18 07:57 Freq: Status: Active Protocol: Document 05/06/18 14:31 [facility] (Rec: 05/06/18 15:14 [facility] [id number]) Physical Therapy Assessment Goals Pain Impairment 8/10 Short Term Goal (STG) decrease pain to no greater than 4/10 STG Duration 6 wks Lead Cook Goal (LTG) decrease pain to no greater than 1/10 LTG Duration 3 months ROM Impairment left ankle df 0 deg Short Term Goal (STG) instruct patient in achilles stretching ex STG Duration 3 wks Lead Cook Goal (LTG) patient to demonstrate left ankle df 10 degrees LTG Duration 3 months Gait Impairment antalgic Short Term Goal (STG) Patient able to ambulate on level surfaces without limp STG Duration 6 wks Alf Goal (LTG) patient able to ambulate on level and uneven surfaces for usual distances without limp LTG Duration 3 months Activity tolerance Impairment Unable to do usual activities due to pain Alf Goal (LTG) Patient able to resume all usual activities with minimal to no pain LTG Duration 3 months Progress Towards Goals Progress Towards Goals Progressing Toward Goals Assessment Summary Assessment Continue to progress with decrease in pain. Physical Therapy Plan Frequency and Duration Frequency of Treatment 2x/Week Duration of Treatment 3 months Plan of Care Start Date 04/23/18 Plan of Care End Date 07/24/18 Therapeutic Interventions Therapeutic Interventions Aquatic Therapy Gait Training Home Exercise Program Manual Therapy Neuromuscular Re-education Patient/Caregiver Education Self-Care/Home Management Taping Therapeutic Activities Therapeutic Exercises Modalities Cold Pack/Ice Massage Electric Stimulation Hot Packs Infrared Therapy Iontophoresis Ultrasound Next Visit Focus/Plan Next Note Type Treatment Note Next Visit Plan Continue PT for pain management, gentle strengthening and flexibility. Add short foot exercise next session.
--- NOTE | 2018-05-13 12:09 | PT.OTN ---
Current Diagnoses Achilles tendinitis, left leg (05/13/18) Physical Therapy Treatment Note PT-OP-A Visit Information Start: 04/23/18 07:57 Freq: Status: Active Protocol: Document 05/13/18 11:18 SAK (Rec: 05/13/18 12:08 [facility] [id number]) Out-Patient Physical Therapy Visit Information Visit Information Visit Type Treatment Note Visit Start Time 11:15 Visit Stop Time 12:01 Total Visit Minutes 46 Visit Number 6 Number of HOURLY SHIFT MANAGER Visits 0 PT-OP-B Current Condition Start: 04/23/18 07:57 Freq: Status: Active Protocol: Document 04/23/18 08:19 SAK (Rec: 04/23/18 09:03 [facility] [id number]) Current Condition History of Current Condition Onset Date 1 yr Current Complaints left heel pain History of Current Condition gradual onset function- limiting left heel pain which patient reports seemed to come on while she was on vacation which included a lot of walking and hiking. Pain improved with injection but has gradually returned. Has been resting, wearing shoes without backs. Initially reports she did lots of icing and stretching as recommended but not much recently due to uncertainty about whether it was helping. States limping due to heel pain has increased her back pain. Frustrated by persistent pain. Prior Treatments and Tests Injection left heel 12/11 with improvement but gradual return of pain. Wore boot for 1 month, now wears night splint. No squattingl, lunges,, stairs, or hills per physician recommendation. Went to IR for scraping therapy without benefit. Wearing heel lifts and heel pads . Also wears soft ankle brace at times which she reports is of some benefit. Treatment Goals Patient/Caregiver Goals Minimize pain and return to more active lifestyle Prior Functional Status Baseline Function- ADL's Independent Baseline Function- Mobility Independent Baseline Function- Gait independent, minimal pain Current Functional Impairments (Reported) Functional Limitations- ADL's painful Functional Limitations- Mobility/Gait painful, no elevation, limited distance Personal Factors Other Personal Factors That May Effect LBP, shoulder fracture 08/11. Therapy/Recovery PT-OP-C Subjective Start: 04/23/18 07:57 Freq: Status: Active Protocol: Document 05/13/18 11:18 SAK (Rec: 05/13/18 12:08 [facility] [id number]) OP-PT Subjective Patient Comments Patient Comments Increased the resistance on her exercise bike to resistance of 5 and had more soreness in her heel yesterday . Trying to ride 30 min/day. PT-OP-G Mobility & Gait Start: 04/23/18 07:57 Freq: Status: Active Protocol: Document 04/23/18 08:19 SAK (Rec: 04/23/18 16:55 [facility] [id number]) OP Gait Assessment Gait Gait Assistance Required: Independent Assistive Devices Assistive Device None Gait Deviations General Gait Pattern Antalgic Factors Limiting Gait Function Factors Limiting Gait Function Limited Range of Motion Pain PT-OP-J Posture/Palpation/Skin Start: 04/23/18 07:57 Freq: Status: Active Protocol: Document 04/23/18 08:19 SAK (Rec: 04/23/18 16:57 [facility] [id number]) Palpation Assessment Location left achilles Palpation Findings Tenderness Palpation Details TTP Achilles insertion, posterior to medial malleolus PT-OP-K Range of Motion Start: 04/23/18 07:57 Freq: Status: Active Protocol: Document 04/23/18 08:19 SAK (Rec: 04/23/18 16:55 [facility] [id number]) Knee Goniometric Range of Motion Knee ROM Limitations Comments WNL tyler Ankle and Foot Goniometric Range of Motion Ankle and Foot Measured in Degrees Left Ankle/Foot ROM WFL No Testing Position Sitting Dorsiflexion with Knee Flexed 0 Dorsiflexion with Knee Extended 5 Plantarflexion 55 Inversion 25 Eversion 20 right Testing Position Sitting Dorsiflexion with Knee Flexed 10 Dorsiflexion with Knee Extended 5 Plantarflexion 55 Inversion 25 Eversion 20 Ankle and Foot ROM Limitations ROM Limitations Soft Tissue Tightness Pain PT-OP-M Strength Start: 04/23/18 07:57 Freq: Status: Active Protocol: Document 04/23/18 08:19 SAK (Rec: 04/23/18 16:58 [facility] [id number]) Ankle/Foot Strength Ankle and Foot Manual Muscle Testing Left Dorsiflexion (L4) 4+ Good+ Plantarflexion (S1) 4 Good Inversion 4 Good Eversion (S1) 4 Good Reason Not Measured Pain Right Dorsiflexion (L4) 5 Normal Plantarflexion (S1) 5 Normal Inversion 5 Normal Eversion (S1) 5 Normal PT-OP-Q Treatments Start: 04/23/18 07:57 Freq: Status: Active Protocol: Document 05/13/18 11:18 [facility] (Rec: 05/13/18 12:08 [facility] [id number]) Cardio Equipment Recumbent Elliptical (Biodex) Duration (Minutes) 8 Resistance 4 Seat Position 9 Gym Equipment Shuttle Recovery Bilateral Squats Resistance 50 Shuttle Recovery Platform Stable Therapeutic Exercises Sitting Exercises short foot exercise Reps/Minutes 10x foot ev, foot inv Reps/Minutes 10x Comments isometric lindy berry picker Reps/Minutes 10x towel scrunch Reps/Minutes 15x foot ev Resistance L2 TB Reps/Minutes 10 foot inv Resistance L2 TB Reps/Minutes 10 Standing Exercises HC stretch Standing Exercise Name CARSON Reps/Minutes 2x Manual Therapy Treatment Soft Tissue Mobilization gastroc, soleus Comments not done due to patient time constraints PT-OP-R Modalities Start: 04/23/18 07:57 Freq: Status: Active Protocol: Document 05/13/18 11:18 [facility] (Rec: 05/13/18 12:08 [facility] [id number]) Hot Pack/Cold Pack Treatment Cold Pack Location left foot/ankle Iontophoresis Treatment Left Ankle Treatment Medication Dexamethasone (-) Medication Amount (mL) (ml) 1 Medication Dosage 4mg/ml Active Electrode Placement left Achilles insertion Treatment Duration (minutes) 3 Ultrasound Therapy Treatment left achilles Treatment Duration (minutes) 8 Patient Position Sidelying Coupling Medium Ultrasound Gel Frequency Setting (mHz) 1 Mode Setting Pulsed Duty Cycle 50% Intensity Setting (w/cm2) 1.0 PT-OP-T Assessment and Plan Start: 04/23/18 07:57 Freq: Status: Active Protocol: Document 05/13/18 11:18 [facility] (Rec: 05/13/18 12:08 [facility] [id number]) Physical Therapy Assessment Goals Pain Impairment 8/10 Short Term Goal (STG) decrease pain to no greater than 4/10 STG Duration 6 wks Senior Java Developer Goal (LTG) decrease pain to no greater than 1/10 LTG Duration 3 months ROM Impairment left ankle df 0 deg Short Term Goal (STG) instruct patient in achilles stretching ex STG Duration 3 wks Skilled Nursing Goal (LTG) patient to demonstrate left ankle df 10 degrees LTG Duration 3 months Gait Impairment antalgic Short Term Goal (STG) Patient able to ambulate on level surfaces without limp STG Duration 6 wks Skilled Nursing Goal (LTG) patient able to ambulate on level and uneven surfaces for usual distances without limp LTG Duration 3 months Activity tolerance Impairment Unable to do usual activities due to pain Senior Java Developer Goal (LTG) Patient able to resume all usual activities with minimal to no pain LTG Duration 3 months Progress Towards Goals Progress Towards Goals Progressing Toward Goals Assessment Summary Assessment Demonstrated good understanding of inv and ev isometric ex. Difficulty with short foot exercise. Physical Therapy Plan Frequency and Duration Frequency of Treatment 2x/Week Duration of Treatment 3 months Plan of Care Start Date 04/23/18 Plan of Care End Date 07/24/18 Therapeutic Interventions Therapeutic Interventions Aquatic Therapy Gait Training Home Exercise Program Manual Therapy Neuromuscular Re-education Patient/Caregiver Education Self-Care/Home Management Taping Therapeutic Activities Therapeutic Exercises Modalities Cold Pack/Ice Massage Electric Stimulation Hot Packs Infrared Therapy Iontophoresis Ultrasound Next Visit Focus/Plan Next Note Type Treatment Note Next Visit Plan review short foot ex and issue written handout. Add SLS and tandem stand if tolerated.
--- NOTE | 2018-05-15 13:25 | PT.OTN ---
Current Diagnoses Achilles tendinitis, left leg (05/15/18) Physical Therapy Treatment Note PT-OP-A Visit Information Start: 04/23/18 07:57 Freq: Status: Active Protocol: Document 05/15/18 09:45 AMB (Rec: 05/15/18 13:25 AMB [email or web address]) Out-Patient Physical Therapy Visit Information Visit Information Visit Type Treatment Note Visit Start Time 09:45 Visit Stop Time 10:30 Total Visit Minutes 45 Visit Number 7 Number of FORMULA CHECKER Visits 0 PT-OP-B Current Condition Start: 04/23/18 07:57 Freq: Status: Active Protocol: Document 04/23/18 08:19 SAK (Rec: 04/23/18 09:03 SAK [id number]) Current Condition History of Current Condition Onset Date 1 yr Current Complaints left heel pain History of Current Condition gradual onset function- limiting left heel pain which patient reports seemed to come on while she was on vacation which included a lot of walking and hiking. Pain improved with injection but has gradually returned. Has been resting, wearing shoes without backs. Initially reports she did lots of icing and stretching as recommended but not much recently due to uncertainty about whether it was helping. States limping due to heel pain has increased her back pain. Frustrated by persistent pain. Prior Treatments and Tests Injection left heel 12/11 with improvement but gradual return of pain. Wore boot for 1 month, now wears night splint. No squattingl, lunges,, stairs, or hills per physician recommendation. Went to IR for scraping therapy without benefit. Wearing heel lifts and heel pads . Also wears soft ankle brace at times which she reports is of some benefit. Treatment Goals Patient/Caregiver Goals Minimize pain and return to more active lifestyle Prior Functional Status Baseline Function- ADL's Independent Baseline Function- Mobility Independent Baseline Function- Gait independent, minimal pain Current Functional Impairments (Reported) Functional Limitations- ADL's painful Functional Limitations- Mobility/Gait painful, no elevation, limited distance Personal Factors Other Personal Factors That May Effect LBP, shoulder fracture 08/11. Therapy/Recovery PT-OP-C Subjective Start: 04/23/18 07:57 Freq: Status: Active Protocol: Document 05/15/18 09:45 AMB (Rec: 05/15/18 13:25 AMB [email or web address]) OP-PT Subjective Patient Comments Patient Comments Pt reports overall improvement of sx, still needing to wear heel-less shoes. PT-OP-G Mobility & Gait Start: 04/23/18 07:57 Freq: Status: Active Protocol: Document 04/23/18 08:19 SAK (Rec: 04/23/18 16:55 [facility] [id number]) OP Gait Assessment Gait Gait Assistance Required: Independent Assistive Devices Assistive Device None Gait Deviations General Gait Pattern Antalgic Factors Limiting Gait Function Factors Limiting Gait Function Limited Range of Motion Pain PT-OP-J Posture/Palpation/Skin Start: 04/23/18 07:57 Freq: Status: Active Protocol: Document 04/23/18 08:19 SAK (Rec: 04/23/18 16:57 SAK [id number]) Palpation Assessment Location left achilles Palpation Findings Tenderness Palpation Details TTP Achilles insertion, posterior to medial malleolus PT-OP-K Range of Motion Start: 04/23/18 07:57 Freq: Status: Active Protocol: Document 04/23/18 08:19 SAK (Rec: 04/23/18 16:55 [facility] [id number]) Knee Goniometric Range of Motion Knee ROM Limitations Comments WNL tyler Ankle and Foot Goniometric Range of Motion Ankle and Foot Measured in Degrees Left Ankle/Foot ROM WFL No Testing Position Sitting Dorsiflexion with Knee Flexed 0 Dorsiflexion with Knee Extended 5 Plantarflexion 55 Inversion 25 Eversion 20 right Testing Position Sitting Dorsiflexion with Knee Flexed 10 Dorsiflexion with Knee Extended 5 Plantarflexion 55 Inversion 25 Eversion 20 Ankle and Foot ROM Limitations ROM Limitations Soft Tissue Tightness Pain PT-OP-M Strength Start: 04/23/18 07:57 Freq: Status: Active Protocol: Document 04/23/18 08:19 SAK (Rec: 04/23/18 16:58 [facility] [id number]) Ankle/Foot Strength Ankle and Foot Manual Muscle Testing Left Dorsiflexion (L4) 4+ Good+ Plantarflexion (S1) 4 Good Inversion 4 Good Eversion (S1) 4 Good Reason Not Measured Pain Right Dorsiflexion (L4) 5 Normal Plantarflexion (S1) 5 Normal Inversion 5 Normal Eversion (S1) 5 Normal PT-OP-Q Treatments Start: 04/23/18 07:57 Freq: Status: Active Protocol: Document 05/15/18 09:45 AMB (Rec: 05/15/18 13:25 AMB [email or web address]) Cardio Equipment Recumbent Elliptical (Biodex) Duration (Minutes) 8 Resistance 4 Seat Position 9 Therapeutic Exercises Sitting Exercises short foot exercise Reps/Minutes 10x foot ev, foot inv Reps/Minutes 10x Comments isometric foot ev Resistance L2 TB Reps/Minutes 10 foot inv Resistance L2 TB Reps/Minutes 10 HC stretch Comments knee bent, knee straight with strap Standing Exercises HC stretch Standing Exercise Name CARSON Reps/Minutes 2x Manual Therapy Treatment Soft Tissue Mobilization gastroc, soleus Body Location left gastroc, soleus Mobilization Type Rolling Strumming Intensity/Depth Moderate Body Position right sidelying PT-OP-R Modalities Start: 04/23/18 07:57 Freq: Status: Active Protocol: Document 05/15/18 09:45 AMB (Rec: 05/15/18 13:25 AMB [email or web address]) Iontophoresis Treatment Left Ankle Treatment Medication Dexamethasone (-) Medication Amount (mL) (ml) 1 Medication Dosage 4mg/ml Active Electrode Placement left Achilles insertion Treatment Duration (minutes) 3 Ultrasound Therapy Treatment left achilles Treatment Duration (minutes) 8 Patient Position Sidelying Coupling Medium Ultrasound Gel Frequency Setting (mHz) 1 Mode Setting Pulsed Duty Cycle 50% Intensity Setting (w/cm2) 1.0 PT-OP-T Assessment and Plan Start: 04/23/18 07:57 Freq: Status: Active Protocol: Document 05/15/18 09:45 AMB (Rec: 05/15/18 13:25 AMB [email or web address]) Physical Therapy Assessment Assessment Summary Assessment Pt with continued feeling of difficulty with short foot exercise due to feeling of disconnect with L side after back surgery. Physical Therapy Plan Next Visit Focus/Plan Next Note Type Treatment Note Next Visit Plan Progress balance training as tolerated (Single leg stance, tandem).
--- NOTE | 2018-05-26 16:25 | PT.OTN ---
Current Diagnoses Achilles tendinitis, left leg (05/26/18) Physical Therapy Treatment Note PT-OP-A Visit Information Start: 04/23/18 07:57 Freq: Status: Active Protocol: Document 05/26/18 09:45 AMB (Rec: 05/26/18 16:25 AMB [email or web address]) Out-Patient Physical Therapy Visit Information Visit Information Visit Type Treatment Note Visit Start Time 09:45 Visit Stop Time 10:30 Total Visit Minutes 45 Visit Number 8 Number of PROSTHETICS TECHNICIAN Visits 0 PT-OP-B Current Condition Start: 04/23/18 07:57 Freq: Status: Active Protocol: Document 04/23/18 08:19 SAK (Rec: 04/23/18 09:03 SAK [id number]) Current Condition History of Current Condition Onset Date 1 yr Current Complaints left heel pain History of Current Condition gradual onset function- limiting left heel pain which patient reports seemed to come on while she was on vacation which included a lot of walking and hiking. Pain improved with injection but has gradually returned. Has been resting, wearing shoes without backs. Initially reports she did lots of icing and stretching as recommended but not much recently due to uncertainty about whether it was helping. States limping due to heel pain has increased her back pain. Frustrated by persistent pain. Prior Treatments and Tests Injection left heel 12/11 with improvement but gradual return of pain. Wore boot for 1 month, now wears night splint. No squattingl, lunges,, stairs, or hills per physician recommendation. Went to IR for scraping therapy without benefit. Wearing heel lifts and heel pads . Also wears soft ankle brace at times which she reports is of some benefit. Treatment Goals Patient/Caregiver Goals Minimize pain and return to more active lifestyle Prior Functional Status Baseline Function- ADL's Independent Baseline Function- Mobility Independent Baseline Function- Gait independent, minimal pain Current Functional Impairments (Reported) Functional Limitations- ADL's painful Functional Limitations- Mobility/Gait painful, no elevation, limited distance Personal Factors Other Personal Factors That May Effect LBP, shoulder fracture 08/11. Therapy/Recovery PT-OP-C Subjective Start: 04/23/18 07:57 Freq: Status: Active Protocol: Document 05/26/18 09:45 AMB (Rec: 05/26/18 16:25 AMB [email or web address]) OP-PT Subjective Patient Comments Patient Comments Pt tried wearing shoes with a back to them and she could feel it irritated her pain quickly. PT-OP-G Mobility & Gait Start: 04/23/18 07:57 Freq: Status: Active Protocol: Document 04/23/18 08:19 SAK (Rec: 04/23/18 16:55 [facility] [id number]) OP Gait Assessment Gait Gait Assistance Required: Independent Assistive Devices Assistive Device None Gait Deviations General Gait Pattern Antalgic Factors Limiting Gait Function Factors Limiting Gait Function Limited Range of Motion Pain PT-OP-J Posture/Palpation/Skin Start: 04/23/18 07:57 Freq: Status: Active Protocol: Document 04/23/18 08:19 SAK (Rec: 04/23/18 16:57 SAK [id number]) Palpation Assessment Location left achilles Palpation Findings Tenderness Palpation Details TTP Achilles insertion, posterior to medial malleolus PT-OP-K Range of Motion Start: 04/23/18 07:57 Freq: Status: Active Protocol: Document 04/23/18 08:19 SAK (Rec: 04/23/18 16:55 [facility] [id number]) Knee Goniometric Range of Motion Knee ROM Limitations Comments WNL tyler Ankle and Foot Goniometric Range of Motion Ankle and Foot Measured in Degrees Left Ankle/Foot ROM WFL No Testing Position Sitting Dorsiflexion with Knee Flexed 0 Dorsiflexion with Knee Extended 5 Plantarflexion 55 Inversion 25 Eversion 20 right Testing Position Sitting Dorsiflexion with Knee Flexed 10 Dorsiflexion with Knee Extended 5 Plantarflexion 55 Inversion 25 Eversion 20 Ankle and Foot ROM Limitations ROM Limitations Soft Tissue Tightness Pain PT-OP-M Strength Start: 04/23/18 07:57 Freq: Status: Active Protocol: Document 04/23/18 08:19 SAK (Rec: 04/23/18 16:58 [facility] [id number]) Ankle/Foot Strength Ankle and Foot Manual Muscle Testing Left Dorsiflexion (L4) 4+ Good+ Plantarflexion (S1) 4 Good Inversion 4 Good Eversion (S1) 4 Good Reason Not Measured Pain Right Dorsiflexion (L4) 5 Normal Plantarflexion (S1) 5 Normal Inversion 5 Normal Eversion (S1) 5 Normal PT-OP-Q Treatments Start: 04/23/18 07:57 Freq: Status: Active Protocol: Document 05/26/18 09:45 AMB (Rec: 05/26/18 16:25 AMB [email or web address]) Cardio Equipment Recumbent Elliptical (Biodex) Duration (Minutes) 8 Resistance 4 Seat Position 9 Therapeutic Exercises Sitting Exercises short foot exercise Reps/Minutes 10x foot ev Resistance L3 TB Reps/Minutes 10 foot inv Resistance L3 TB Reps/Minutes 10 HC stretch Comments knee bent, knee straight with strap Standing Exercises HC stretch Standing Exercise Name CARSON Reps/Minutes 2x Manual Therapy Treatment Soft Tissue Mobilization gastroc, soleus Body Location left gastroc, soleus Mobilization Type Rolling Strumming Intensity/Depth Moderate Body Position right sidelying PT-OP-R Modalities Start: 04/23/18 07:57 Freq: Status: Active Protocol: Document 05/26/18 09:45 AMB (Rec: 05/26/18 16:25 AMB [email or web address]) Iontophoresis Treatment Left Ankle Treatment Medication Dexamethasone (-) Medication Amount (mL) (ml) 1 Medication Dosage 4mg/ml Active Electrode Placement left Achilles insertion Treatment Duration (minutes) 3 Ultrasound Therapy Treatment left achilles Treatment Duration (minutes) 8 Patient Position Sidelying Coupling Medium Ultrasound Gel Frequency Setting (mHz) 1 Mode Setting Pulsed Duty Cycle 50% Intensity Setting (w/cm2) 1.0 PT-OP-T Assessment and Plan Start: 04/23/18 07:57 Freq: Status: Active Protocol: Document 05/26/18 09:45 AMB (Rec: 05/26/18 16:25 AMB [email or web address]) Physical Therapy Assessment Progress Towards Goals Progress Towards Goals Progressing Toward Goals Assessment Summary Assessment The patient is tolerating more strengthening but continues to have difficulty with shoes with backs to them. Physical Therapy Plan Frequency and Duration Frequency of Treatment 2x/Week Duration of Treatment 3 months Plan of Care Start Date 04/23/18 Plan of Care End Date 07/24/18 Therapeutic Interventions Therapeutic Interventions Aquatic Therapy Gait Training Home Exercise Program Manual Therapy Neuromuscular Re-education Patient/Caregiver Education Self-Care/Home Management Taping Therapeutic Activities Therapeutic Exercises Modalities Cold Pack/Ice Massage Electric Stimulation Hot Packs Infrared Therapy Iontophoresis Ultrasound Next Visit Focus/Plan Next Note Type Treatment Note Next Visit Plan Progress balance training as tolerated (Single leg stance, tandem).
--- NOTE | 2018-06-01 17:48 | PT.OTN ---
Current Diagnoses Achilles tendinitis, left leg (05/29/18) Physical Therapy Treatment Note PT-OP-A Visit Information Start: 04/23/18 07:57 Freq: Status: Active Protocol: Document 05/29/18 09:44 SAK (Rec: 05/29/18 10:31 [facility] [id number]) Out-Patient Physical Therapy Visit Information Visit Information Visit Type Treatment Note Visit Start Time 09:45 Visit Stop Time 10:30 Total Visit Minutes 51 Visit Number 9 Number of QUALITY IMPROVEMENT COORDINATOR Visits 0 PT-OP-B Current Condition Start: 04/23/18 07:57 Freq: Status: Active Protocol: Document 04/23/18 08:19 SAK (Rec: 04/23/18 09:03 [facility] [id number]) Current Condition History of Current Condition Onset Date 1 yr Current Complaints left heel pain History of Current Condition gradual onset function- limiting left heel pain which patient reports seemed to come on while she was on vacation which included a lot of walking and hiking. Pain improved with injection but has gradually returned. Has been resting, wearing shoes without backs. Initially reports she did lots of icing and stretching as recommended but not much recently due to uncertainty about whether it was helping. States limping due to heel pain has increased her back pain. Frustrated by persistent pain. Prior Treatments and Tests Injection left heel 12/11 with improvement but gradual return of pain. Wore boot for 1 month, now wears night splint. No squattingl, lunges,, stairs, or hills per physician recommendation. Went to IR for scraping therapy without benefit. Wearing heel lifts and heel pads . Also wears soft ankle brace at times which she reports is of some benefit. Treatment Goals Patient/Caregiver Goals Minimize pain and return to more active lifestyle Prior Functional Status Baseline Function- ADL's Independent Baseline Function- Mobility Independent Baseline Function- Gait independent, minimal pain Current Functional Impairments (Reported) Functional Limitations- ADL's painful Functional Limitations- Mobility/Gait painful, no elevation, limited distance Personal Factors Other Personal Factors That May Effect LBP, shoulder fracture 08/11. Therapy/Recovery PT-OP-C Subjective Start: 04/23/18 07:57 Freq: Status: Active Protocol: Document 05/29/18 09:44 SAK (Rec: 05/29/18 10:31 [facility] [id number]) OP-PT Subjective Patient Comments Patient Comments Walking with shoes with a back a little more with better tolerance. PT-OP-G Mobility & Gait Start: 04/23/18 07:57 Freq: Status: Active Protocol: Document 04/23/18 08:19 SAK (Rec: 04/23/18 16:55 [facility] [id number]) OP Gait Assessment Gait Gait Assistance Required: Independent Assistive Devices Assistive Device None Gait Deviations General Gait Pattern Antalgic Factors Limiting Gait Function Factors Limiting Gait Function Limited Range of Motion Pain PT-OP-J Posture/Palpation/Skin Start: 04/23/18 07:57 Freq: Status: Active Protocol: Document 04/23/18 08:19 SAK (Rec: 04/23/18 16:57 [facility] [id number]) Palpation Assessment Location left achilles Palpation Findings Tenderness Palpation Details TTP Achilles insertion, posterior to medial malleolus PT-OP-K Range of Motion Start: 04/23/18 07:57 Freq: Status: Active Protocol: Document 04/23/18 08:19 SAK (Rec: 04/23/18 16:55 [facility] [id number]) Knee Goniometric Range of Motion Knee ROM Limitations Comments WNL tyler Ankle and Foot Goniometric Range of Motion Ankle and Foot Measured in Degrees Left Ankle/Foot ROM WFL No Testing Position Sitting Dorsiflexion with Knee Flexed 0 Dorsiflexion with Knee Extended 5 Plantarflexion 55 Inversion 25 Eversion 20 right Testing Position Sitting Dorsiflexion with Knee Flexed 10 Dorsiflexion with Knee Extended 5 Plantarflexion 55 Inversion 25 Eversion 20 Ankle and Foot ROM Limitations ROM Limitations Soft Tissue Tightness Pain PT-OP-M Strength Start: 04/23/18 07:57 Freq: Status: Active Protocol: Document 04/23/18 08:19 SAK (Rec: 04/23/18 16:58 [facility] [id number]) Ankle/Foot Strength Ankle and Foot Manual Muscle Testing Left Dorsiflexion (L4) 4+ Good+ Plantarflexion (S1) 4 Good Inversion 4 Good Eversion (S1) 4 Good Reason Not Measured Pain Right Dorsiflexion (L4) 5 Normal Plantarflexion (S1) 5 Normal Inversion 5 Normal Eversion (S1) 5 Normal PT-OP-Q Treatments Start: 04/23/18 07:57 Freq: Status: Active Protocol: Document 05/29/18 09:44 SAK (Rec: 05/29/18 10:31 [facility] [id number]) Cardio Equipment Recumbent Elliptical (Biodex) Duration (Minutes) 10 Resistance 4 Seat Position 9 Gym Equipment Shuttle Balance standing bal and weight-shift Details chains yellow, red Comments mod UE support Therapeutic Exercises Sitting Exercises short foot exercise Reps/Minutes 10x foot ev, foot inv Reps/Minutes 10x Comments isometric BAPS board Sitting Exercise Name fwd/bck, side/side, circles Reps/Minutes 10x Comments L3 foot ev Resistance L3 TB Reps/Minutes 10 foot inv Resistance L3 TB Reps/Minutes 10 Standing Exercises HC stretch Standing Exercise Name CARSON Reps/Minutes 2x Manual Therapy Treatment Soft Tissue Mobilization gastroc, soleus Body Location left gastroc, soleus Mobilization Type Rolling Strumming Intensity/Depth Moderate Body Position right sidelying Neuro Re-Education Treatment Balance Activities BOSU Details standing bal Reps/Duration 1 min PT-OP-R Modalities Start: 04/23/18 07:57 Freq: Status: Active Protocol: Document 05/29/18 09:44 [facility] (Rec: 05/29/18 10:31 [facility] [id number]) Hot Pack/Cold Pack Treatment Cold Pack Location left foot/ankle Iontophoresis Treatment Left Ankle Treatment Medication Dexamethasone (-) Medication Amount (mL) (ml) 1 Medication Dosage 4mg/ml Active Electrode Placement left Achilles insertion Treatment Duration (minutes) 3 Ultrasound Therapy Treatment left achilles Treatment Duration (minutes) 8 Patient Position Sidelying Coupling Medium Ultrasound Gel Frequency Setting (mHz) 1 Mode Setting Pulsed Duty Cycle 50% Intensity Setting (w/cm2) 1.0 PT-OP-T Assessment and Plan Start: 04/23/18 07:57 Freq: Status: Active Protocol: Document 05/29/18 09:44 [facility] (Rec: 06/01/18 17:46 [facility] [id number]) Physical Therapy Assessment Goals Pain Impairment 8/10 Short Term Goal (STG) decrease pain to no greater than 4/10 STG Duration 6 wks Pourer Metal Goal (LTG) decrease pain to no greater than 1/10 LTG Duration 3 months ROM Impairment left ankle df 0 deg Short Term Goal (STG) instruct patient in achilles stretching ex STG Duration 3 wks [facility] Goal (LTG) patient to demonstrate left ankle df 10 degrees LTG Duration 3 months Gait Impairment antalgic Short Term Goal (STG) Patient able to ambulate on level surfaces without limp STG Duration 6 wks Pourer Metal Goal (LTG) patient able to ambulate on level and uneven surfaces for usual distances without limp LTG Duration 3 months Activity tolerance Impairment Unable to do usual activities due to pain Chcf Goal (LTG) Patient able to resume all usual activities with minimal to no pain LTG Duration 3 months Progress Towards Goals Progress Towards Goals Progressing Toward Goals Assessment Summary Assessment Patient wore shoes to PT today with fair tolerance. Physical Therapy Plan Frequency and Duration Frequency of Treatment 2x/Week Duration of Treatment 3 months Plan of Care Start Date 04/23/18 Plan of Care End Date 07/24/18 Therapeutic Interventions Therapeutic Interventions Aquatic Therapy Gait Training Home Exercise Program Manual Therapy Neuromuscular Re-education Patient/Caregiver Education Self-Care/Home Management Taping Therapeutic Activities Therapeutic Exercises Modalities Cold Pack/Ice Massage Electric Stimulation Hot Packs Infrared Therapy Iontophoresis Ultrasound Next Visit Focus/Plan Next Note Type Progress Note Next Visit Plan Progress balance training as tolerated (Single leg stance, tandem).
--- NOTE | 2018-06-03 11:06 | PT.OTN ---
Current Diagnoses Achilles tendinitis, left leg (06/03/18) Physical Therapy Treatment Note PT-OP-A Visit Information Start: 04/23/18 07:57 Freq: Status: Active Protocol: Document 06/03/18 09:48 SAK (Rec: 06/03/18 10:47 [facility] [id number]) Out-Patient Physical Therapy Visit Information Visit Information Visit Type Progress Note Visit Start Time 09:45 Visit Stop Time 10:30 Total Visit Minutes 52 Visit Number 10 Number of FIELD SUPERVISOR SEED PRODUCTION Visits 0 PT-OP-B Current Condition Start: 04/23/18 07:57 Freq: Status: Active Protocol: Document 04/23/18 08:19 SAK (Rec: 04/23/18 09:03 [facility] [id number]) Current Condition History of Current Condition Onset Date 1 yr Current Complaints left heel pain History of Current Condition gradual onset function- limiting left heel pain which patient reports seemed to come on while she was on vacation which included a lot of walking and hiking. Pain improved with injection but has gradually returned. Has been resting, wearing shoes without backs. Initially reports she did lots of icing and stretching as recommended but not much recently due to uncertainty about whether it was helping. States limping due to heel pain has increased her back pain. Frustrated by persistent pain. Prior Treatments and Tests Injection left heel 12/11 with improvement but gradual return of pain. Wore boot for 1 month, now wears night splint. No squattingl, lunges,, stairs, or hills per physician recommendation. Went to IR for scraping therapy without benefit. Wearing heel lifts and heel pads . Also wears soft ankle brace at times which she reports is of some benefit. Treatment Goals Patient/Caregiver Goals Minimize pain and return to more active lifestyle Prior Functional Status Baseline Function- ADL's Independent Baseline Function- Mobility Independent Baseline Function- Gait independent, minimal pain Current Functional Impairments (Reported) Functional Limitations- ADL's painful Functional Limitations- Mobility/Gait painful, no elevation, limited distance Personal Factors Other Personal Factors That May Effect LBP, shoulder fracture 08/11. Therapy/Recovery PT-OP-C Subjective Start: 04/23/18 07:57 Freq: Status: Active Protocol: Document 06/03/18 09:48 SAK (Rec: 06/03/18 10:47 [facility] [id number]) OP-PT Subjective Patient Comments Patient Comments Able to take a walk of about 1 mile without pain; pleased with progress. PT-OP-G Mobility & Gait Start: 04/23/18 07:57 Freq: Status: Active Protocol: Document 04/23/18 08:19 SAK (Rec: 04/23/18 16:55 [facility] [id number]) OP Gait Assessment Gait Gait Assistance Required: Independent Assistive Devices Assistive Device None Gait Deviations General Gait Pattern Antalgic Factors Limiting Gait Function Factors Limiting Gait Function Limited Range of Motion Pain PT-OP-J Posture/Palpation/Skin Start: 04/23/18 07:57 Freq: Status: Active Protocol: Document 04/23/18 08:19 SAK (Rec: 04/23/18 16:57 SAK [id number]) Palpation Assessment Location left achilles Palpation Findings Tenderness Palpation Details TTP Achilles insertion, posterior to medial malleolus PT-OP-K Range of Motion Start: 04/23/18 07:57 Freq: Status: Active Protocol: Document 04/23/18 08:19 SAK (Rec: 04/23/18 16:55 [facility] [id number]) Knee Goniometric Range of Motion Knee ROM Limitations Comments WNL tyler Ankle and Foot Goniometric Range of Motion Ankle and Foot Measured in Degrees Left Ankle/Foot ROM WFL No Testing Position Sitting Dorsiflexion with Knee Flexed 0 Dorsiflexion with Knee Extended 5 Plantarflexion 55 Inversion 25 Eversion 20 right Testing Position Sitting Dorsiflexion with Knee Flexed 10 Dorsiflexion with Knee Extended 5 Plantarflexion 55 Inversion 25 Eversion 20 Ankle and Foot ROM Limitations ROM Limitations Soft Tissue Tightness Pain PT-OP-M Strength Start: 04/23/18 07:57 Freq: Status: Active Protocol: Document 04/23/18 08:19 SAK (Rec: 04/23/18 16:58 [facility] [id number]) Ankle/Foot Strength Ankle and Foot Manual Muscle Testing Left Dorsiflexion (L4) 4+ Good+ Plantarflexion (S1) 4 Good Inversion 4 Good Eversion (S1) 4 Good Reason Not Measured Pain Right Dorsiflexion (L4) 5 Normal Plantarflexion (S1) 5 Normal Inversion 5 Normal Eversion (S1) 5 Normal PT-OP-Q Treatments Start: 04/23/18 07:57 Freq: Status: Active Protocol: Document 06/03/18 09:48 [facility] (Rec: 06/03/18 10:47 [facility] [id number]) Cardio Equipment Recumbent Elliptical (Biodex) Duration (Minutes) 10 Resistance 4 Seat Position 9 Gym Equipment Shuttle Balance standing bal and weight-shift Details chains red Comments mod UE support Therapeutic Exercises Standing Exercises HC stretch Standing Exercise Name CARSON Reps/Minutes 2x Comments tyler and unil Manual Therapy Treatment Soft Tissue Mobilization gastroc, soleus Body Location left gastroc, soleus Mobilization Type Rolling Strumming Intensity/Depth Moderate Body Position right sidelying Neuro Re-Education Treatment Balance Activities tandem stand Reps/Duration 2 min SLS Reps/Duration 2x ea BOSU lunge Reps/Duration 10x tyler BOSU Details standing bal, weight-shifts Reps/Duration 1 min PT-OP-R Modalities Start: 04/23/18 07:57 Freq: Status: Active Protocol: Document 06/03/18 09:48 [facility] (Rec: 06/03/18 10:47 [facility] [id number]) Hot Pack/Cold Pack Treatment Cold Pack Location left foot/ankle Iontophoresis Treatment Left Ankle Treatment Medication Dexamethasone (-) Medication Amount (mL) (ml) 1 Medication Dosage 4mg/ml Active Electrode Placement left Achilles insertion Treatment Duration (minutes) 3 Ultrasound Therapy Treatment left achilles Treatment Duration (minutes) 8 Patient Position Sidelying Coupling Medium Ultrasound Gel Frequency Setting (mHz) 1 Mode Setting Pulsed Duty Cycle 50% Intensity Setting (w/cm2) 1.0 PT-OP-T Assessment and Plan Start: 04/23/18 07:57 Freq: Status: Active Protocol: Document 06/03/18 09:48 [facility] (Rec: 06/03/18 10:47 [facility] [id number]) Physical Therapy Assessment Goals Pain Impairment 8/10 Short Term Goal (STG) decrease pain to no greater than 4/10 06/03/18: goal achieved Mate Chief Goal (LTG) decrease pain to no greater than 1/10 06/03/18: good goal progress LTG Duration 3 months ROM Impairment left ankle df 0 deg Short Term Goal (STG) instruct patient in achilles stretching ex 06/03/18: goal achieved Mate Chief Goal (LTG) patient to demonstrate left ankle df 10 degrees 06/03/18: good goal progress LTG Duration 3 months Gait Impairment antalgic Short Term Goal (STG) Patient able to ambulate on level surfaces without limp 06/03/18: goal achieved Mate Chief Goal (LTG) patient able to ambulate on level and uneven surfaces for usual distances without limp 06/03/18: has not tried uneven surfaces yet LTG Duration 3 months Activity tolerance Impairment Unable to do usual activities due to pain Mate Chief Goal (LTG) Patient able to resume all usual activities with minimal to no pain 06/03/18: goal progress LTG Duration 3 months Progress Towards Goals Progress Towards Goals Progressing Toward Goals Assessment Summary Assessment Good progress with decreasing pain and improving function left LE. Physical Therapy Plan Frequency and Duration Frequency of Treatment 2x/Week Duration of Treatment 3 months Plan of Care Start Date 04/23/18 Plan of Care End Date 07/24/18 Therapeutic Interventions Therapeutic Interventions Aquatic Therapy Gait Training Home Exercise Program Manual Therapy Neuromuscular Re-education Patient/Caregiver Education Self-Care/Home Management Taping Therapeutic Activities Therapeutic Exercises Modalities Cold Pack/Ice Massage Electric Stimulation Hot Packs Infrared Therapy Iontophoresis Ultrasound Next Visit Focus/Plan Next Note Type Treatment Note Next Visit Plan Continue PT to decrease pain and improve LE function left LE.
--- NOTE | 2018-06-05 15:02 | PT.OTN ---
Current Diagnoses Achilles tendinitis, left leg (06/05/18) Physical Therapy Treatment Note PT-OP-A Visit Information Start: 04/23/18 07:57 Freq: Status: Active Protocol: Document 06/05/18 10:33 SAK (Rec: 06/05/18 11:15 [facility] [id number]) Out-Patient Physical Therapy Visit Information Visit Information Visit Type Treatment Note Visit Start Time 10:32 Visit Stop Time 11:21 Total Visit Minutes 53 Visit Number 11 Number of CLINICAL DATA ANALYST Visits 0 PT-OP-B Current Condition Start: 04/23/18 07:57 Freq: Status: Active Protocol: Document 04/23/18 08:19 SAK (Rec: 04/23/18 09:03 [facility] [id number]) Current Condition History of Current Condition Onset Date 1 yr Current Complaints left heel pain History of Current Condition gradual onset function- limiting left heel pain which patient reports seemed to come on while she was on vacation which included a lot of walking and hiking. Pain improved with injection but has gradually returned. Has been resting, wearing shoes without backs. Initially reports she did lots of icing and stretching as recommended but not much recently due to uncertainty about whether it was helping. States limping due to heel pain has increased her back pain. Frustrated by persistent pain. Prior Treatments and Tests Injection left heel 12/11 with improvement but gradual return of pain. Wore boot for 1 month, now wears night splint. No squattingl, lunges,, stairs, or hills per physician recommendation. Went to IR for scraping therapy without benefit. Wearing heel lifts and heel pads . Also wears soft ankle brace at times which she reports is of some benefit. Treatment Goals Patient/Caregiver Goals Minimize pain and return to more active lifestyle Prior Functional Status Baseline Function- ADL's Independent Baseline Function- Mobility Independent Baseline Function- Gait independent, minimal pain Current Functional Impairments (Reported) Functional Limitations- ADL's painful Functional Limitations- Mobility/Gait painful, no elevation, limited distance Personal Factors Other Personal Factors That May Effect LBP, shoulder fracture 08/11. Therapy/Recovery PT-OP-C Subjective Start: 04/23/18 07:57 Freq: Status: Active Protocol: Document 06/05/18 10:33 SAK (Rec: 06/05/18 11:15 [facility] [id number]) OP-PT Subjective Patient Comments Patient Comments No new c/o, pleased with progress. PT-OP-G Mobility & Gait Start: 04/23/18 07:57 Freq: Status: Active Protocol: Document 04/23/18 08:19 SAK (Rec: 04/23/18 16:55 [facility] [id number]) OP Gait Assessment Gait Gait Assistance Required: Independent Assistive Devices Assistive Device None Gait Deviations General Gait Pattern Antalgic Factors Limiting Gait Function Factors Limiting Gait Function Limited Range of Motion Pain PT-OP-J Posture/Palpation/Skin Start: 04/23/18 07:57 Freq: Status: Active Protocol: Document 04/23/18 08:19 SAK (Rec: 04/23/18 16:57 SAK [id number]) Palpation Assessment Location left achilles Palpation Findings Tenderness Palpation Details TTP Achilles insertion, posterior to medial malleolus PT-OP-K Range of Motion Start: 04/23/18 07:57 Freq: Status: Active Protocol: Document 04/23/18 08:19 SAK (Rec: 04/23/18 16:55 [facility] [id number]) Knee Goniometric Range of Motion Knee ROM Limitations Comments WNL tyler Ankle and Foot Goniometric Range of Motion Ankle and Foot Measured in Degrees Left Ankle/Foot ROM WFL No Testing Position Sitting Dorsiflexion with Knee Flexed 0 Dorsiflexion with Knee Extended 5 Plantarflexion 55 Inversion 25 Eversion 20 right Testing Position Sitting Dorsiflexion with Knee Flexed 10 Dorsiflexion with Knee Extended 5 Plantarflexion 55 Inversion 25 Eversion 20 Ankle and Foot ROM Limitations ROM Limitations Soft Tissue Tightness Pain PT-OP-M Strength Start: 04/23/18 07:57 Freq: Status: Active Protocol: Document 04/23/18 08:19 SAK (Rec: 04/23/18 16:58 SAK [id number]) Ankle/Foot Strength Ankle and Foot Manual Muscle Testing Left Dorsiflexion (L4) 4+ Good+ Plantarflexion (S1) 4 Good Inversion 4 Good Eversion (S1) 4 Good Reason Not Measured Pain Right Dorsiflexion (L4) 5 Normal Plantarflexion (S1) 5 Normal Inversion 5 Normal Eversion (S1) 5 Normal PT-OP-Q Treatments Start: 04/23/18 07:57 Freq: Status: Active Protocol: Document 06/05/18 10:33 SAK (Rec: 06/05/18 11:15 [facility] [id number]) Cardio Equipment Recumbent Bicycle Duration (Minutes) 8 Resistance 5 Seat Position 5 Gym Equipment Shuttle Recovery Unilateral Squats Resistance 37 Shuttle Recovery Platform Unstable Reps/Time 1x10 Bilateral Squats Resistance 50 Shuttle Recovery Platform Unstable Reps/Time 2x10 Shuttle Balance standing bal and weight-shift Details chains red Comments mod UE support; forward, forward staggered, side Therapeutic Exercises Standing Exercises HC stretch Standing Exercise Name CARSON Reps/Minutes 2x Comments tyler and unil; bent and straight knee Neuro Re-Education Treatment Balance Activities tandem stand Reps/Duration 2 min SLS Reps/Duration 2x ea PT-OP-R Modalities Start: 04/23/18 07:57 Freq: Status: Active Protocol: Document 06/05/18 10:33 [facility] (Rec: 06/05/18 15:02 [facility] [id number]) Hot Pack/Cold Pack Treatment Cold Pack Location left foot/ankle Iontophoresis Treatment Left Ankle Treatment Medication Dexamethasone (-) Medication Amount (mL) (ml) 1 Medication Dosage 4mg/ml Active Electrode Placement left Achilles insertion Treatment Duration (minutes) 3 Ultrasound Therapy Treatment left achilles Treatment Duration (minutes) 8 Patient Position Sidelying Coupling Medium Ultrasound Gel Frequency Setting (mHz) 1 Mode Setting Pulsed Duty Cycle 50% Intensity Setting (w/cm2) 1.0 PT-OP-T Assessment and Plan Start: 04/23/18 07:57 Freq: Status: Active Protocol: Document 06/05/18 10:33 [facility] (Rec: 06/05/18 15:02 [facility] [id number]) Physical Therapy Assessment Goals Pain Impairment 8/10 Short Term Goal (STG) decrease pain to no greater than 4/10 06/03/18: goal achieved Bindery Machine Tender Goal (LTG) decrease pain to no greater than 1/10 06/03/18: good goal progress LTG Duration 3 months ROM Impairment left ankle df 0 deg Short Term Goal (STG) instruct patient in achilles stretching ex 06/03/18: goal achieved Bindery Machine Tender Goal (LTG) patient to demonstrate left ankle df 10 degrees 06/03/18: good goal progress LTG Duration 3 months Gait Impairment antalgic Short Term Goal (STG) Patient able to ambulate on level surfaces without limp 06/03/18: goal achieved Bindery Machine Tender Goal (LTG) patient able to ambulate on level and uneven surfaces for usual distances without limp 06/03/18: has not tried uneven surfaces yet LTG Duration 3 months Activity tolerance Impairment Unable to do usual activities due to pain Mcfp Goal (LTG) Patient able to resume all usual activities with minimal to no pain 06/03/18: goal progress LTG Duration 3 months Progress Towards Goals Progress Towards Goals Progressing Toward Goals Assessment Summary Assessment Tolerated exercise progression well without c/o pain, wearing shoes with back. Physical Therapy Plan Frequency and Duration Frequency of Treatment 2x/Week Duration of Treatment 3 months Plan of Care Start Date 04/23/18 Plan of Care End Date 07/24/18 Therapeutic Interventions Therapeutic Interventions Aquatic Therapy Gait Training Home Exercise Program Manual Therapy Neuromuscular Re-education Patient/Caregiver Education Self-Care/Home Management Taping Therapeutic Activities Therapeutic Exercises Modalities Cold Pack/Ice Massage Electric Stimulation Hot Packs Infrared Therapy Iontophoresis Ultrasound Next Visit Focus/Plan Next Note Type Treatment Note Next Visit Plan BAPS board with L4, increase resistance for ankle ex with TB for HEP as tolerated.
--- NOTE | 2018-06-09 12:59 | PT.OTN ---
Current Diagnoses Achilles tendinitis, left leg (06/09/18) Physical Therapy Treatment Note PT-OP-A Visit Information Start: 04/23/18 07:57 Freq: Status: Active Protocol: Document 06/09/18 11:15 AMB (Rec: 06/09/18 11:22 AMB [id number]) Out-Patient Physical Therapy Visit Information Visit Information Visit Type Treatment Note Visit Start Time 11:15 Visit Stop Time 12:00 Total Visit Minutes 53 Visit Number 12 Number of PRINT LINE FEEDER Visits 0 PT-OP-B Current Condition Start: 04/23/18 07:57 Freq: Status: Active Protocol: Document 04/23/18 08:19 SAK (Rec: 04/23/18 09:03 SAK [id number]) Current Condition History of Current Condition Onset Date 1 yr Current Complaints left heel pain History of Current Condition gradual onset function- limiting left heel pain which patient reports seemed to come on while she was on vacation which included a lot of walking and hiking. Pain improved with injection but has gradually returned. Has been resting, wearing shoes without backs. Initially reports she did lots of icing and stretching as recommended but not much recently due to uncertainty about whether it was helping. States limping due to heel pain has increased her back pain. Frustrated by persistent pain. Prior Treatments and Tests Injection left heel 12/11 with improvement but gradual return of pain. Wore boot for 1 month, now wears night splint. No squattingl, lunges,, stairs, or hills per physician recommendation. Went to IR for scraping therapy without benefit. Wearing heel lifts and heel pads . Also wears soft ankle brace at times which she reports is of some benefit. Treatment Goals Patient/Caregiver Goals Minimize pain and return to more active lifestyle Prior Functional Status Baseline Function- ADL's Independent Baseline Function- Mobility Independent Baseline Function- Gait independent, minimal pain Current Functional Impairments (Reported) Functional Limitations- ADL's painful Functional Limitations- Mobility/Gait painful, no elevation, limited distance Personal Factors Other Personal Factors That May Effect LBP, shoulder fracture 08/11. Therapy/Recovery PT-OP-C Subjective Start: 04/23/18 07:57 Freq: Status: Active Protocol: Document 06/09/18 11:15 AMB (Rec: 06/09/18 11:22 AMB [id number]) OP-PT Subjective Patient Comments Patient Comments On feet 6 hours on Saturday without symptoms. PT-OP-G Mobility & Gait Start: 04/23/18 07:57 Freq: Status: Active Protocol: Document 04/23/18 08:19 SAK (Rec: 04/23/18 16:55 [facility] [id number]) OP Gait Assessment Gait Gait Assistance Required: Independent Assistive Devices Assistive Device None Gait Deviations General Gait Pattern Antalgic Factors Limiting Gait Function Factors Limiting Gait Function Limited Range of Motion Pain PT-OP-J Posture/Palpation/Skin Start: 04/23/18 07:57 Freq: Status: Active Protocol: Document 04/23/18 08:19 SAK (Rec: 04/23/18 16:57 SAK [id number]) Palpation Assessment Location left achilles Palpation Findings Tenderness Palpation Details TTP Achilles insertion, posterior to medial malleolus PT-OP-K Range of Motion Start: 04/23/18 07:57 Freq: Status: Active Protocol: Document 04/23/18 08:19 SAK (Rec: 04/23/18 16:55 [facility] [id number]) Knee Goniometric Range of Motion Knee ROM Limitations Comments WNL tyler Ankle and Foot Goniometric Range of Motion Ankle and Foot Measured in Degrees Left Ankle/Foot ROM WFL No Testing Position Sitting Dorsiflexion with Knee Flexed 0 Dorsiflexion with Knee Extended 5 Plantarflexion 55 Inversion 25 Eversion 20 right Testing Position Sitting Dorsiflexion with Knee Flexed 10 Dorsiflexion with Knee Extended 5 Plantarflexion 55 Inversion 25 Eversion 20 Ankle and Foot ROM Limitations ROM Limitations Soft Tissue Tightness Pain PT-OP-M Strength Start: 04/23/18 07:57 Freq: Status: Active Protocol: Document 04/23/18 08:19 SAK (Rec: 04/23/18 16:58 SAK [id number]) Ankle/Foot Strength Ankle and Foot Manual Muscle Testing Left Dorsiflexion (L4) 4+ Good+ Plantarflexion (S1) 4 Good Inversion 4 Good Eversion (S1) 4 Good Reason Not Measured Pain Right Dorsiflexion (L4) 5 Normal Plantarflexion (S1) 5 Normal Inversion 5 Normal Eversion (S1) 5 Normal PT-OP-Q Treatments Start: 04/23/18 07:57 Freq: Status: Active Protocol: Document 06/09/18 11:15 AMB (Rec: 06/09/18 12:58 AMB [id number]) Cardio Equipment Recumbent Bicycle Duration (Minutes) 8 Resistance 5 Seat Position 5 Gym Equipment Shuttle Balance standing bal and weight-shift Details chains red Comments mod UE support; forward, forward staggered, Therapeutic Exercises Sitting Exercises BAPS board Sitting Exercise Name fwd/bck, side/side, circles Reps/Minutes 10x Comments L4 Standing Exercises HC stretch Standing Exercise Name CARSON Reps/Minutes 2x Comments tyler and unil; bent and straight knee Neuro Re-Education Treatment Balance Activities tandem stand Reps/Duration 2 min SLS Reps/Duration 2x ea BOSU lunge Reps/Duration 10x tyler PT-OP-R Modalities Start: 04/23/18 07:57 Freq: Status: Active Protocol: Document 06/09/18 11:15 AMB (Rec: 06/09/18 12:59 AMB [email or web address]) Iontophoresis Treatment Left Ankle Treatment Medication Dexamethasone (-) Medication Amount (mL) (ml) 1 Medication Dosage 4mg/ml Active Electrode Placement left Achilles insertion Treatment Duration (minutes) 3 Ultrasound Therapy Treatment left achilles Treatment Duration (minutes) 8 Patient Position Sidelying Coupling Medium Ultrasound Gel Frequency Setting (mHz) 1 Mode Setting Pulsed Duty Cycle 50% Intensity Setting (w/cm2) 1.0 PT-OP-T Assessment and Plan Start: 04/23/18 07:57 Freq: Status: Active Protocol: Document 06/09/18 11:15 AMB (Rec: 06/09/18 12:58 AMB [id number]) Physical Therapy Assessment Goals Pain Impairment 8/10 Short Term Goal (STG) decrease pain to no greater than 4/10 06/03/18: goal achieved Alf Goal (LTG) decrease pain to no greater than 1/10 06/03/18: good goal progress LTG Duration 3 months ROM Impairment left ankle df 0 deg Short Term Goal (STG) instruct patient in achilles stretching ex 06/03/18: goal achieved Alf Goal (LTG) patient to demonstrate left ankle df 10 degrees 06/03/18: good goal progress LTG Duration 3 months Gait Impairment antalgic Short Term Goal (STG) Patient able to ambulate on level surfaces without limp 06/03/18: goal achieved Alf Goal (LTG) patient able to ambulate on level and uneven surfaces for usual distances without limp 06/03/18: has not tried uneven surfaces yet LTG Duration 3 months Activity tolerance Impairment Unable to do usual activities due to pain Alf Goal (LTG) Patient able to resume all usual activities with minimal to no pain 06/03/18: goal progress LTG Duration 3 months Progress Towards Goals Progress Towards Goals Progressing Toward Goals Assessment Summary Assessment Tolerated exercise, but did have ant tibialis cramping with some stretching. Physical Therapy Plan Frequency and Duration Frequency of Treatment 2x/Week Duration of Treatment 3 months Plan of Care Start Date 04/23/18 Plan of Care End Date 07/24/18 Therapeutic Interventions Therapeutic Interventions Aquatic Therapy Gait Training Home Exercise Program Manual Therapy Neuromuscular Re-education Patient/Caregiver Education Self-Care/Home Management Taping Therapeutic Activities Therapeutic Exercises Modalities Cold Pack/Ice Massage Electric Stimulation Hot Packs Infrared Therapy Iontophoresis Ultrasound Next Visit Focus/Plan Next Note Type Treatment Note Next Visit Plan , increase resistance for ankle ex with TB for HEP as tolerated.
--- NOTE | 2018-06-12 11:36 | PT.OTN ---
Current Diagnoses Achilles tendinitis, left leg (06/12/18) Physical Therapy Treatment Note PT-OP-A Visit Information Start: 04/23/18 07:57 Freq: Status: Active Protocol: Document 06/12/18 10:44 SAK (Rec: 06/12/18 11:35 [facility] [id number]) Out-Patient Physical Therapy Visit Information Visit Information Visit Type Treatment Note Visit Start Time 10:40 Visit Stop Time 11:36 Total Visit Minutes 56 Visit Number 12 Number of MIRROR MACHINE FEEDER Visits 0 PT-OP-B Current Condition Start: 04/23/18 07:57 Freq: Status: Active Protocol: Document 04/23/18 08:19 SAK (Rec: 04/23/18 09:03 [facility] [id number]) Current Condition History of Current Condition Onset Date 1 yr Current Complaints left heel pain History of Current Condition gradual onset function- limiting left heel pain which patient reports seemed to come on while she was on vacation which included a lot of walking and hiking. Pain improved with injection but has gradually returned. Has been resting, wearing shoes without backs. Initially reports she did lots of icing and stretching as recommended but not much recently due to uncertainty about whether it was helping. States limping due to heel pain has increased her back pain. Frustrated by persistent pain. Prior Treatments and Tests Injection left heel 12/11 with improvement but gradual return of pain. Wore boot for 1 month, now wears night splint. No squattingl, lunges,, stairs, or hills per physician recommendation. Went to IR for scraping therapy without benefit. Wearing heel lifts and heel pads . Also wears soft ankle brace at times which she reports is of some benefit. Treatment Goals Patient/Caregiver Goals Minimize pain and return to more active lifestyle Prior Functional Status Baseline Function- ADL's Independent Baseline Function- Mobility Independent Baseline Function- Gait independent, minimal pain Current Functional Impairments (Reported) Functional Limitations- ADL's painful Functional Limitations- Mobility/Gait painful, no elevation, limited distance Personal Factors Other Personal Factors That May Effect LBP, shoulder fracture 08/11. Therapy/Recovery PT-OP-C Subjective Start: 04/23/18 07:57 Freq: Status: Active Protocol: Document 06/12/18 10:44 SAK (Rec: 06/12/18 11:35 [facility] [id number]) OP-PT Subjective Patient Comments Patient Comments No new c/o, a little stressed due to house showings today. PT-OP-G Mobility & Gait Start: 04/23/18 07:57 Freq: Status: Active Protocol: Document 04/23/18 08:19 SAK (Rec: 04/23/18 16:55 [facility] [id number]) OP Gait Assessment Gait Gait Assistance Required: Independent Assistive Devices Assistive Device None Gait Deviations General Gait Pattern Antalgic Factors Limiting Gait Function Factors Limiting Gait Function Limited Range of Motion Pain PT-OP-J Posture/Palpation/Skin Start: 04/23/18 07:57 Freq: Status: Active Protocol: Document 04/23/18 08:19 SAK (Rec: 04/23/18 16:57 SAK [id number]) Palpation Assessment Location left achilles Palpation Findings Tenderness Palpation Details TTP Achilles insertion, posterior to medial malleolus PT-OP-K Range of Motion Start: 04/23/18 07:57 Freq: Status: Active Protocol: Document 04/23/18 08:19 SAK (Rec: 04/23/18 16:55 [facility] [id number]) Knee Goniometric Range of Motion Knee ROM Limitations Comments WNL tyler Ankle and Foot Goniometric Range of Motion Ankle and Foot Measured in Degrees Left Ankle/Foot ROM WFL No Testing Position Sitting Dorsiflexion with Knee Flexed 0 Dorsiflexion with Knee Extended 5 Plantarflexion 55 Inversion 25 Eversion 20 right Testing Position Sitting Dorsiflexion with Knee Flexed 10 Dorsiflexion with Knee Extended 5 Plantarflexion 55 Inversion 25 Eversion 20 Ankle and Foot ROM Limitations ROM Limitations Soft Tissue Tightness Pain PT-OP-M Strength Start: 04/23/18 07:57 Freq: Status: Active Protocol: Document 04/23/18 08:19 SAK (Rec: 04/23/18 16:58 [facility] [id number]) Ankle/Foot Strength Ankle and Foot Manual Muscle Testing Left Dorsiflexion (L4) 4+ Good+ Plantarflexion (S1) 4 Good Inversion 4 Good Eversion (S1) 4 Good Reason Not Measured Pain Right Dorsiflexion (L4) 5 Normal Plantarflexion (S1) 5 Normal Inversion 5 Normal Eversion (S1) 5 Normal PT-OP-Q Treatments Start: 04/23/18 07:57 Freq: Status: Active Protocol: Document 06/12/18 10:44 SAK (Rec: 06/12/18 11:35 [facility] [id number]) Cardio Equipment Recumbent Stepper (Sci-Fit) Duration (Minutes) 10 Resistance 2.5 Seat Position 11 Gym Equipment Shuttle Recovery Unilateral Squats Resistance 37 Shuttle Recovery Platform Unstable Reps/Time 1x10 Bilateral Squats Resistance 50 Shuttle Recovery Platform Unstable Reps/Time 2x10 Shuttle Balance standing bal and weight-shift Details chains red Comments mod UE support; forward, forward staggered, Therapeutic Exercises Sitting Exercises foot ev Resistance L3 TB Reps/Minutes 10 foot inv Resistance L3 TB Reps/Minutes 10 Standing Exercises HC stretch Standing Exercise Name CARSON Reps/Minutes 2x Comments tyler and unil; bent and straight knee Manual Therapy Treatment Soft Tissue Mobilization gastroc, soleus Body Location left gastroc, soleus Mobilization Type Rolling Strumming Intensity/Depth Moderate Body Position right sidelying Neuro Re-Education Treatment Balance Activities tandem stand Reps/Duration 2 min SLS Reps/Duration 2x ea BOSU lunge Reps/Duration 10x tyler BOSU Details standing bal, weight-shifts Reps/Duration 3 min PT-OP-R Modalities Start: 04/23/18 07:57 Freq: Status: Active Protocol: Document 06/12/18 10:44 [facility] (Rec: 06/12/18 11:35 [facility] [id number]) Hot Pack/Cold Pack Treatment Cold Pack Location left foot/ankle Iontophoresis Treatment Left Ankle Treatment Medication Dexamethasone (-) Medication Amount (mL) (ml) 1 Medication Dosage 4mg/ml Active Electrode Placement left Achilles insertion Treatment Duration (minutes) 3 Ultrasound Therapy Treatment left achilles Treatment Duration (minutes) 8 Patient Position Sidelying Coupling Medium Ultrasound Gel Frequency Setting (mHz) 1 Mode Setting Pulsed Duty Cycle 50% Intensity Setting (w/cm2) 1.0 PT-OP-T Assessment and Plan Start: 04/23/18 07:57 Freq: Status: Active Protocol: Document 06/12/18 10:44 CAROLE (Rec: 06/12/18 11:35 [facility] [id number]) Physical Therapy Assessment Goals Pain Impairment 8/10 Short Term Goal (STG) decrease pain to no greater than 4/10 06/03/18: goal achieved Skilled Nursing Goal (LTG) decrease pain to no greater than 1/10 06/03/18: good goal progress LTG Duration 3 months ROM Impairment left ankle df 0 deg Short Term Goal (STG) instruct patient in achilles stretching ex 06/03/18: goal achieved Skilled Nursing Goal (LTG) patient to demonstrate left ankle df 10 degrees 06/03/18: good goal progress LTG Duration 3 months Gait Impairment antalgic Short Term Goal (STG) Patient able to ambulate on level surfaces without limp 06/03/18: goal achieved Balloon Tester Goal (LTG) patient able to ambulate on level and uneven surfaces for usual distances without limp 06/03/18: has not tried uneven surfaces yet LTG Duration 3 months Activity tolerance Impairment Unable to do usual activities due to pain Balloon Tester Goal (LTG) Patient able to resume all usual activities with minimal to no pain 06/03/18: goal progress LTG Duration 3 months Progress Towards Goals Progress Towards Goals Progressing Toward Goals Assessment Summary Assessment Improving gait tolerance, now able to wear closed healed shoes the majority of her day. Physical Therapy Plan Frequency and Duration Frequency of Treatment 2x/Week Duration of Treatment 3 months Plan of Care Start Date 04/23/18 Plan of Care End Date 07/24/18 Therapeutic Interventions Therapeutic Interventions Aquatic Therapy Gait Training Home Exercise Program Manual Therapy Neuromuscular Re-education Patient/Caregiver Education Self-Care/Home Management Taping Therapeutic Activities Therapeutic Exercises Modalities Cold Pack/Ice Massage Electric Stimulation Hot Packs Infrared Therapy Iontophoresis Ultrasound Next Visit Focus/Plan Next Note Type Treatment Note Next Visit Plan Continue to progress ther ex for ankle stability and strengthening.
--- NOTE | 2018-06-16 15:13 | PT.OTN ---
Current Diagnoses Achilles tendinitis, left leg (06/16/18) Physical Therapy Treatment Note PT-OP-A Visit Information Start: 04/23/18 07:57 Freq: Status: Active Protocol: Document 06/16/18 09:45 AMB (Rec: 06/16/18 09:57 AMB [id number]) Out-Patient Physical Therapy Visit Information Visit Information Visit Type Treatment Note Visit Start Time 09:45 Visit Stop Time 10:40 Total Visit Minutes 55 Visit Number 14 Number of COMPOUND MACHINE OPERATOR Visits 0 PT-OP-B Current Condition Start: 04/23/18 07:57 Freq: Status: Active Protocol: Document 04/23/18 08:19 SAK (Rec: 04/23/18 09:03 SAK [id number]) Current Condition History of Current Condition Onset Date 1 yr Current Complaints left heel pain History of Current Condition gradual onset function- limiting left heel pain which patient reports seemed to come on while she was on vacation which included a lot of walking and hiking. Pain improved with injection but has gradually returned. Has been resting, wearing shoes without backs. Initially reports she did lots of icing and stretching as recommended but not much recently due to uncertainty about whether it was helping. States limping due to heel pain has increased her back pain. Frustrated by persistent pain. Prior Treatments and Tests Injection left heel 12/11 with improvement but gradual return of pain. Wore boot for 1 month, now wears night splint. No squattingl, lunges,, stairs, or hills per physician recommendation. Went to IR for scraping therapy without benefit. Wearing heel lifts and heel pads . Also wears soft ankle brace at times which she reports is of some benefit. Treatment Goals Patient/Caregiver Goals Minimize pain and return to more active lifestyle Prior Functional Status Baseline Function- ADL's Independent Baseline Function- Mobility Independent Baseline Function- Gait independent, minimal pain Current Functional Impairments (Reported) Functional Limitations- ADL's painful Functional Limitations- Mobility/Gait painful, no elevation, limited distance Personal Factors Other Personal Factors That May Effect LBP, shoulder fracture 08/11. Therapy/Recovery PT-OP-C Subjective Start: 04/23/18 07:57 Freq: Status: Active Protocol: Document 06/16/18 09:45 AMB (Rec: 06/16/18 09:57 AMB [id number]) OP-PT Subjective Patient Comments Patient Comments Pt notes she is pending in her house, so she has been busy with that. PT-OP-G Mobility & Gait Start: 04/23/18 07:57 Freq: Status: Active Protocol: Document 04/23/18 08:19 SAK (Rec: 04/23/18 16:55 [facility] [id number]) OP Gait Assessment Gait Gait Assistance Required: Independent Assistive Devices Assistive Device None Gait Deviations General Gait Pattern Antalgic Factors Limiting Gait Function Factors Limiting Gait Function Limited Range of Motion Pain PT-OP-J Posture/Palpation/Skin Start: 04/23/18 07:57 Freq: Status: Active Protocol: Document 04/23/18 08:19 SAK (Rec: 04/23/18 16:57 SAK [id number]) Palpation Assessment Location left achilles Palpation Findings Tenderness Palpation Details TTP Achilles insertion, posterior to medial malleolus PT-OP-K Range of Motion Start: 04/23/18 07:57 Freq: Status: Active Protocol: Document 04/23/18 08:19 SAK (Rec: 04/23/18 16:55 [facility] [id number]) Knee Goniometric Range of Motion Knee ROM Limitations Comments WNL tyler Ankle and Foot Goniometric Range of Motion Ankle and Foot Measured in Degrees Left Ankle/Foot ROM WFL No Testing Position Sitting Dorsiflexion with Knee Flexed 0 Dorsiflexion with Knee Extended 5 Plantarflexion 55 Inversion 25 Eversion 20 right Testing Position Sitting Dorsiflexion with Knee Flexed 10 Dorsiflexion with Knee Extended 5 Plantarflexion 55 Inversion 25 Eversion 20 Ankle and Foot ROM Limitations ROM Limitations Soft Tissue Tightness Pain PT-OP-M Strength Start: 04/23/18 07:57 Freq: Status: Active Protocol: Document 04/23/18 08:19 SAK (Rec: 04/23/18 16:58 [facility] [id number]) Ankle/Foot Strength Ankle and Foot Manual Muscle Testing Left Dorsiflexion (L4) 4+ Good+ Plantarflexion (S1) 4 Good Inversion 4 Good Eversion (S1) 4 Good Reason Not Measured Pain Right Dorsiflexion (L4) 5 Normal Plantarflexion (S1) 5 Normal Inversion 5 Normal Eversion (S1) 5 Normal PT-OP-Q Treatments Start: 04/23/18 07:57 Freq: Status: Active Protocol: Document 06/16/18 09:45 AMB (Rec: 06/16/18 10:11 AMB [id number]) Cardio Equipment Recumbent Elliptical (Biodex) Duration (Minutes) 10 Resistance 4 Seat Position 9 Gym Equipment Shuttle Recovery Unilateral Squats Resistance 37 Shuttle Recovery Platform Unstable Reps/Time 1x10 Bilateral Squats Resistance 75 Shuttle Recovery Platform Unstable Reps/Time 2x10 Shuttle Balance standing bal and weight-shift Details chains red Comments mod UE support; forward, forward staggered, Therapeutic Exercises Standing Exercises HC stretch Standing Exercise Name CARSON Reps/Minutes 2x Comments tyler and unil; bent and straight knee Manual Therapy Treatment Soft Tissue Mobilization gastroc, soleus Body Location left gastroc, soleus Mobilization Type Rolling Strumming Intensity/Depth Moderate Body Position right sidelying Neuro Re-Education Treatment Balance Activities SLS Reps/Duration 2x ea PT-OP-R Modalities Start: 04/23/18 07:57 Freq: Status: Active Protocol: Document 06/16/18 10:15 AMB (Rec: 06/16/18 13:04 AMB [id number]) Iontophoresis Treatment Left Ankle Treatment Medication Dexamethasone (-) Medication Amount (mL) (ml) 1 Medication Dosage 4mg/ml Active Electrode Placement left Achilles insertion Treatment Duration (minutes) 3 Ultrasound Therapy Treatment left achilles Treatment Duration (minutes) 8 Patient Position Sidelying Coupling Medium Ultrasound Gel Frequency Setting (mHz) 1 Mode Setting Pulsed Duty Cycle 50% Intensity Setting (w/cm2) 1.0 PT-OP-T Assessment and Plan Start: 04/23/18 07:57 Freq: Status: Active Protocol: Document 06/16/18 09:45 AMB (Rec: 06/16/18 15:06 AMB [id number]) Physical Therapy Assessment Assessment Summary Assessment Pt tolerating more balance/ stabilization exercises, low back sx limiting some exercises. Physical Therapy Plan Next Visit Focus/Plan Next Note Type Treatment Note Next Visit Plan Continue to progress ther ex for ankle stability and strengthening begin to finalize HEP, as pt will likely be leaving town within the next month.
--- NOTE | 2018-06-20 14:58 | PT.OTN ---
Current Diagnoses Achilles tendinitis, left leg (06/19/18) Physical Therapy Treatment Note PT-OP-A Visit Information Start: 04/23/18 07:57 Freq: Status: Active Protocol: Document 06/19/18 14:36 [facility] (Rec: 06/19/18 15:15 [facility] [id number]) Out-Patient Physical Therapy Visit Information Visit Information Visit Type Treatment Note Visit Start Time 09:45 Visit Stop Time 10:40 Total Visit Minutes 53 Visit Number 15 Number of QUALITY RN Visits 0 PT-OP-B Current Condition Start: 04/23/18 07:57 Freq: Status: Active Protocol: Document 04/23/18 08:19 SAK (Rec: 04/23/18 09:03 [facility] [id number]) Current Condition History of Current Condition Onset Date 1 yr Current Complaints left heel pain History of Current Condition gradual onset function- limiting left heel pain which patient reports seemed to come on while she was on vacation which included a lot of walking and hiking. Pain improved with injection but has gradually returned. Has been resting, wearing shoes without backs. Initially reports she did lots of icing and stretching as recommended but not much recently due to uncertainty about whether it was helping. States limping due to heel pain has increased her back pain. Frustrated by persistent pain. Prior Treatments and Tests Injection left heel 12/11 with improvement but gradual return of pain. Wore boot for 1 month, now wears night splint. No squattingl, lunges,, stairs, or hills per physician recommendation. Went to IR for scraping therapy without benefit. Wearing heel lifts and heel pads . Also wears soft ankle brace at times which she reports is of some benefit. Treatment Goals Patient/Caregiver Goals Minimize pain and return to more active lifestyle Prior Functional Status Baseline Function- ADL's Independent Baseline Function- Mobility Independent Baseline Function- Gait independent, minimal pain Current Functional Impairments (Reported) Functional Limitations- ADL's painful Functional Limitations- Mobility/Gait painful, no elevation, limited distance Personal Factors Other Personal Factors That May Effect LBP, shoulder fracture 08/11. Therapy/Recovery PT-OP-C Subjective Start: 04/23/18 07:57 Freq: Status: Active Protocol: Document 06/19/18 14:36 SAK (Rec: 06/19/18 15:15 [facility] [id number]) OP-PT Subjective Patient Comments Patient Comments Has sold her house, will be moving to [place] by July. Continues to feel less pain. PT-OP-G Mobility & Gait Start: 04/23/18 07:57 Freq: Status: Active Protocol: Document 04/23/18 08:19 SAK (Rec: 04/23/18 16:55 [facility] [id number]) OP Gait Assessment Gait Gait Assistance Required: Independent Assistive Devices Assistive Device None Gait Deviations General Gait Pattern Antalgic Factors Limiting Gait Function Factors Limiting Gait Function Limited Range of Motion Pain PT-OP-J Posture/Palpation/Skin Start: 04/23/18 07:57 Freq: Status: Active Protocol: Document 04/23/18 08:19 SAK (Rec: 04/23/18 16:57 [facility] [id number]) Palpation Assessment Location left achilles Palpation Findings Tenderness Palpation Details TTP Achilles insertion, posterior to medial malleolus PT-OP-K Range of Motion Start: 04/23/18 07:57 Freq: Status: Active Protocol: Document 04/23/18 08:19 SAK (Rec: 04/23/18 16:55 [facility] [id number]) Knee Goniometric Range of Motion Knee ROM Limitations Comments WNL tyler Ankle and Foot Goniometric Range of Motion Ankle and Foot Measured in Degrees Left Ankle/Foot ROM WFL No Testing Position Sitting Dorsiflexion with Knee Flexed 0 Dorsiflexion with Knee Extended 5 Plantarflexion 55 Inversion 25 Eversion 20 right Testing Position Sitting Dorsiflexion with Knee Flexed 10 Dorsiflexion with Knee Extended 5 Plantarflexion 55 Inversion 25 Eversion 20 Ankle and Foot ROM Limitations ROM Limitations Soft Tissue Tightness Pain PT-OP-M Strength Start: 04/23/18 07:57 Freq: Status: Active Protocol: Document 04/23/18 08:19 SAK (Rec: 04/23/18 16:58 [facility] [id number]) Ankle/Foot Strength Ankle and Foot Manual Muscle Testing Left Dorsiflexion (L4) 4+ Good+ Plantarflexion (S1) 4 Good Inversion 4 Good Eversion (S1) 4 Good Reason Not Measured Pain Right Dorsiflexion (L4) 5 Normal Plantarflexion (S1) 5 Normal Inversion 5 Normal Eversion (S1) 5 Normal PT-OP-Q Treatments Start: 04/23/18 07:57 Freq: Status: Active Protocol: Document 06/19/18 14:36 [facility] (Rec: 06/19/18 15:15 [facility] [id number]) Cardio Equipment Recumbent Elliptical (Biodex) Duration (Minutes) 10 Resistance 4 Seat Position 9 Gym Equipment Shuttle Recovery Unilateral Squats Resistance 37 Shuttle Recovery Platform Unstable Reps/Time 1x10 Bilateral Squats Resistance 75 Shuttle Recovery Platform Unstable Reps/Time 2x10 Shuttle Balance standing bal and weight-shift Details chains red Comments mod UE support; forward, forward staggered, Therapeutic Exercises Sitting Exercises foot ev Resistance L3 TB Reps/Minutes 10 foot inv Resistance L3 TB Reps/Minutes 10 Standing Exercises HC stretch Standing Exercise Name CARSON Reps/Minutes 2x Comments tyler and unil; bent and straight knee Manual Therapy Treatment Soft Tissue Mobilization gastroc, soleus Body Location left gastroc, soleus Mobilization Type Rolling Strumming Intensity/Depth Moderate Body Position right sidelying Neuro Re-Education Treatment Balance Activities tandem stand Reps/Duration 2 min SLS Reps/Duration 2x ea BOSU lunge Reps/Duration 10x tyler BOSU Details standing bal, weight-shifts Reps/Duration 3 min PT-OP-R Modalities Start: 04/23/18 07:57 Freq: Status: Active Protocol: Document 06/19/18 14:36 [facility] (Rec: 06/19/18 15:15 [facility] [id number]) Iontophoresis Treatment Left Ankle Treatment Medication Dexamethasone (-) Medication Amount (mL) (ml) 1 Medication Dosage 4mg/ml Active Electrode Placement left Achilles insertion Treatment Duration (minutes) 3 Ultrasound Therapy Treatment left achilles Treatment Duration (minutes) 8 Patient Position Sidelying Coupling Medium Ultrasound Gel Frequency Setting (mHz) 1 Mode Setting Pulsed Duty Cycle 50% Intensity Setting (w/cm2) 1.0 PT-OP-T Assessment and Plan Start: 04/23/18 07:57 Freq: Status: Active Protocol: Document 06/19/18 14:36 [facility] (Rec: 06/19/18 15:15 [facility] [id number]) Physical Therapy Assessment Goals Pain Impairment 8/10 Short Term Goal (STG) decrease pain to no greater than 4/10 06/03/18: goal achieved Special Education Tutor Goal (LTG) decrease pain to no greater than 1/10 06/03/18: good goal progress LTG Duration 3 months ROM Impairment left ankle df 0 deg Short Term Goal (STG) instruct patient in achilles stretching ex 06/03/18: goal achieved Fpc Goal (LTG) patient to demonstrate left ankle df 10 degrees 06/03/18: good goal progress LTG Duration 3 months Gait Impairment antalgic Short Term Goal (STG) Patient able to ambulate on level surfaces without limp 06/03/18: goal achieved Fpc Goal (LTG) patient able to ambulate on level and uneven surfaces for usual distances without limp 06/03/18: has not tried uneven surfaces yet LTG Duration 3 months Activity tolerance Impairment Unable to do usual activities due to pain Fpc Goal (LTG) Patient able to resume all usual activities with minimal to no pain 06/03/18: goal progress LTG Duration 3 months Progress Towards Goals Progress Towards Goals Progressing Toward Goals Assessment Summary Assessment Continues to make good progress with decreasing pain and improving function. Physical Therapy Plan Frequency and Duration Frequency of Treatment 2x/Week Duration of Treatment 3 months Plan of Care Start Date 04/23/18 Plan of Care End Date 07/24/18 Therapeutic Interventions Therapeutic Interventions Aquatic Therapy Gait Training Home Exercise Program Manual Therapy Neuromuscular Re-education Patient/Caregiver Education Self-Care/Home Management Taping Therapeutic Activities Therapeutic Exercises Modalities Cold Pack/Ice Massage Electric Stimulation Hot Packs Infrared Therapy Iontophoresis Ultrasound Next Visit Focus/Plan Next Note Type Treatment Note Next Visit Plan update HEP handouts, progressing as tolerated with ther ex.
--- NOTE | 2018-06-23 12:57 | PT.OTN ---
Current Diagnoses Achilles tendinitis, left leg (06/23/18) Physical Therapy Treatment Note PT-OP-A Visit Information Start: 04/23/18 07:57 Freq: Status: Active Protocol: Document 06/23/18 09:45 AMB (Rec: 06/23/18 09:51 AMB [id number]) Out-Patient Physical Therapy Visit Information Visit Information Visit Type Treatment Note Visit Start Time 09:45 Visit Stop Time 10:30 Total Visit Minutes 53 Visit Number 16 Number of IMAGING ANALYST Visits 0 PT-OP-B Current Condition Start: 04/23/18 07:57 Freq: Status: Active Protocol: Document 04/23/18 08:19 SAK (Rec: 04/23/18 09:03 [facility] [id number]) Current Condition History of Current Condition Onset Date 1 yr Current Complaints left heel pain History of Current Condition gradual onset function- limiting left heel pain which patient reports seemed to come on while she was on vacation which included a lot of walking and hiking. Pain improved with injection but has gradually returned. Has been resting, wearing shoes without backs. Initially reports she did lots of icing and stretching as recommended but not much recently due to uncertainty about whether it was helping. States limping due to heel pain has increased her back pain. Frustrated by persistent pain. Prior Treatments and Tests Injection left heel 12/11 with improvement but gradual return of pain. Wore boot for 1 month, now wears night splint. No squattingl, lunges,, stairs, or hills per physician recommendation. Went to IR for scraping therapy without benefit. Wearing heel lifts and heel pads . Also wears soft ankle brace at times which she reports is of some benefit. Treatment Goals Patient/Caregiver Goals Minimize pain and return to more active lifestyle Prior Functional Status Baseline Function- ADL's Independent Baseline Function- Mobility Independent Baseline Function- Gait independent, minimal pain Current Functional Impairments (Reported) Functional Limitations- ADL's painful Functional Limitations- Mobility/Gait painful, no elevation, limited distance Personal Factors Other Personal Factors That May Effect LBP, shoulder fracture 08/11. Therapy/Recovery PT-OP-C Subjective Start: 04/23/18 07:57 Freq: Status: Active Protocol: Document 06/23/18 09:45 AMB (Rec: 06/23/18 09:51 AMB [id number]) OP-PT Subjective Patient Comments Patient Comments Feels much better since starting PT. Notes no soreness after PT. PT-OP-G Mobility & Gait Start: 04/23/18 07:57 Freq: Status: Active Protocol: Document 04/23/18 08:19 SAK (Rec: 04/23/18 16:55 [facility] [id number]) OP Gait Assessment Gait Gait Assistance Required: Independent Assistive Devices Assistive Device None Gait Deviations General Gait Pattern Antalgic Factors Limiting Gait Function Factors Limiting Gait Function Limited Range of Motion Pain PT-OP-J Posture/Palpation/Skin Start: 04/23/18 07:57 Freq: Status: Active Protocol: Document 04/23/18 08:19 SAK (Rec: 04/23/18 16:57 SAK [id number]) Palpation Assessment Location left achilles Palpation Findings Tenderness Palpation Details TTP Achilles insertion, posterior to medial malleolus PT-OP-K Range of Motion Start: 04/23/18 07:57 Freq: Status: Active Protocol: Document 04/23/18 08:19 SAK (Rec: 04/23/18 16:55 [facility] [id number]) Knee Goniometric Range of Motion Knee ROM Limitations Comments WNL tyler Ankle and Foot Goniometric Range of Motion Ankle and Foot Measured in Degrees Left Ankle/Foot ROM WFL No Testing Position Sitting Dorsiflexion with Knee Flexed 0 Dorsiflexion with Knee Extended 5 Plantarflexion 55 Inversion 25 Eversion 20 right Testing Position Sitting Dorsiflexion with Knee Flexed 10 Dorsiflexion with Knee Extended 5 Plantarflexion 55 Inversion 25 Eversion 20 Ankle and Foot ROM Limitations ROM Limitations Soft Tissue Tightness Pain PT-OP-M Strength Start: 04/23/18 07:57 Freq: Status: Active Protocol: Document 04/23/18 08:19 SAK (Rec: 04/23/18 16:58 [facility] [id number]) Ankle/Foot Strength Ankle and Foot Manual Muscle Testing Left Dorsiflexion (L4) 4+ Good+ Plantarflexion (S1) 4 Good Inversion 4 Good Eversion (S1) 4 Good Reason Not Measured Pain Right Dorsiflexion (L4) 5 Normal Plantarflexion (S1) 5 Normal Inversion 5 Normal Eversion (S1) 5 Normal PT-OP-Q Treatments Start: 04/23/18 07:57 Freq: Status: Active Protocol: Document 06/23/18 09:45 AMB (Rec: 06/23/18 09:53 AMB [id number]) Cardio Equipment Recumbent Elliptical (Biodex) Duration (Minutes) 10 Resistance 4 Seat Position 9 Gym Equipment Shuttle Balance standing bal and weight-shift Details chains red Comments mod UE support; forward, forward staggered, Therapeutic Exercises Standing Exercises 2 Standing Exercise Name wall squat Reps/Minutes 15 x4 1 Standing Exercise Name 8 step up Reps/Minutes 2x10 Comments difficult HC stretch Standing Exercise Name CARSON Reps/Minutes 2x Comments tyler and unil; bent and straight knee Manual Therapy Treatment Soft Tissue Mobilization gastroc, soleus Body Location left gastroc, soleus Mobilization Type Rolling Strumming Intensity/Depth Moderate Body Position right sidelying Neuro Re-Education Treatment Balance Activities tandem stand Reps/Duration 2 min SLS Reps/Duration 2x ea PT-OP-R Modalities Start: 04/23/18 07:57 Freq: Status: Active Protocol: Document 06/23/18 09:45 AMB (Rec: 06/23/18 12:48 AMB [id number]) Iontophoresis Treatment Left Ankle Treatment Medication Dexamethasone (-) Medication Amount (mL) (ml) 1 Medication Dosage 4mg/ml Active Electrode Placement left Achilles insertion Treatment Duration (minutes) 3 Ultrasound Therapy Treatment left achilles Treatment Duration (minutes) 8 Patient Position Sidelying Coupling Medium Ultrasound Gel Frequency Setting (mHz) 1 Mode Setting Pulsed Duty Cycle 50% Intensity Setting (w/cm2) 1.0 PT-OP-T Assessment and Plan Start: 04/23/18 07:57 Freq: Status: Active Protocol: Document 06/23/18 09:45 AMB (Rec: 06/23/18 12:48 AMB [id number]) Physical Therapy Assessment Assessment Summary Assessment Pt concerned about thigh/ gluteal weakness with large steps. Would encourage pt to continue with strengthening program independently at home. Focused on exercises that do not require much equipment as pt is going to be moving multiple times. Physical Therapy Plan Next Visit Focus/Plan Next Note Type Treatment Note Next Visit Plan update HEP handouts,
--- NOTE | 2018-06-26 12:08 | PT.OTN ---
Current Diagnoses Achilles tendinitis, left leg (06/26/18) Physical Therapy Treatment Note PT-OP-A Visit Information Start: 04/23/18 07:57 Freq: Status: Active Protocol: Document 06/26/18 11:20 [facility]AK (Rec: 06/26/18 12:08 [facility] [id number]) Out-Patient Physical Therapy Visit Information Visit Information Visit Type Treatment Note Visit Start Time 11:16 Visit Stop Time 12:02 Total Visit Minutes 46 Visit Number 17 Number of BULLET SLUGS INSPECTOR Visits 0 PT-OP-B Current Condition Start: 04/23/18 07:57 Freq: Status: Active Protocol: Document 04/23/18 08:19 SAK (Rec: 04/23/18 09:03 [facility] [id number]) Current Condition History of Current Condition Onset Date 1 yr Current Complaints left heel pain History of Current Condition gradual onset function- limiting left heel pain which patient reports seemed to come on while she was on vacation which included a lot of walking and hiking. Pain improved with injection but has gradually returned. Has been resting, wearing shoes without backs. Initially reports she did lots of icing and stretching as recommended but not much recently due to uncertainty about whether it was helping. States limping due to heel pain has increased her back pain. Frustrated by persistent pain. Prior Treatments and Tests Injection left heel 12/11 with improvement but gradual return of pain. Wore boot for 1 month, now wears night splint. No squattingl, lunges,, stairs, or hills per physician recommendation. Went to IR for scraping therapy without benefit. Wearing heel lifts and heel pads . Also wears soft ankle brace at times which she reports is of some benefit. Treatment Goals Patient/Caregiver Goals Minimize pain and return to more active lifestyle Prior Functional Status Baseline Function- ADL's Independent Baseline Function- Mobility Independent Baseline Function- Gait independent, minimal pain Current Functional Impairments (Reported) Functional Limitations- ADL's painful Functional Limitations- Mobility/Gait painful, no elevation, limited distance Personal Factors Other Personal Factors That May Effect LBP, shoulder fracture 08/11. Therapy/Recovery PT-OP-C Subjective Start: 04/23/18 07:57 Freq: Status: Active Protocol: Document 06/26/18 11:20 [facility]AK (Rec: 06/26/18 12:08 [facility] [id number]) OP-PT Subjective Patient Comments Patient Comments Reports feeling 75% better, able to walk barefoot in house , minimal pain. PT-OP-G Mobility & Gait Start: 04/23/18 07:57 Freq: Status: Active Protocol: Document 04/23/18 08:19 SAK (Rec: 04/23/18 16:55 [facility] [id number]) OP Gait Assessment Gait Gait Assistance Required: Independent Assistive Devices Assistive Device None Gait Deviations General Gait Pattern Antalgic Factors Limiting Gait Function Factors Limiting Gait Function Limited Range of Motion Pain PT-OP-J Posture/Palpation/Skin Start: 04/23/18 07:57 Freq: Status: Active Protocol: Document 04/23/18 08:19 SAK (Rec: 04/23/18 16:57 [facility] [id number]) Palpation Assessment Location left achilles Palpation Findings Tenderness Palpation Details TTP Achilles insertion, posterior to medial malleolus PT-OP-K Range of Motion Start: 04/23/18 07:57 Freq: Status: Active Protocol: Document 04/23/18 08:19 [facility]AK (Rec: 04/23/18 16:55 [facility] [id number]) Knee Goniometric Range of Motion Knee ROM Limitations Comments WNL tyler Ankle and Foot Goniometric Range of Motion Ankle and Foot Measured in Degrees Left Ankle/Foot ROM WFL No Testing Position Sitting Dorsiflexion with Knee Flexed 0 Dorsiflexion with Knee Extended 5 Plantarflexion 55 Inversion 25 Eversion 20 right Testing Position Sitting Dorsiflexion with Knee Flexed 10 Dorsiflexion with Knee Extended 5 Plantarflexion 55 Inversion 25 Eversion 20 Ankle and Foot ROM Limitations ROM Limitations Soft Tissue Tightness Pain PT-OP-M Strength Start: 04/23/18 07:57 Freq: Status: Active Protocol: Document 04/23/18 08:19 SAK (Rec: 04/23/18 16:58 [facility] [id number]) Ankle/Foot Strength Ankle and Foot Manual Muscle Testing Left Dorsiflexion (L4) 4+ Good+ Plantarflexion (S1) 4 Good Inversion 4 Good Eversion (S1) 4 Good Reason Not Measured Pain Right Dorsiflexion (L4) 5 Normal Plantarflexion (S1) 5 Normal Inversion 5 Normal Eversion (S1) 5 Normal PT-OP-Q Treatments Start: 04/23/18 07:57 Freq: Status: Active Protocol: Document 06/26/18 11:20 [facility]AK (Rec: 06/26/18 12:08 [facility] [id number]) Cardio Equipment Recumbent Elliptical (Biodex) Duration (Minutes) 7 Resistance 4 Seat Position 9 Treadmill Duration (Minutes) 5 Speed 1.6 Incline -3 to 2 Gym Equipment Shuttle Recovery Unilateral Squats Resistance 37 Shuttle Recovery Platform Unstable Reps/Time 1x10 Bilateral Squats Resistance 75 Shuttle Recovery Platform Unstable Reps/Time 2x10 Shuttle Balance standing bal and weight-shift Details chains red Comments mod UE support; forward, forward staggered, Therapeutic Exercises Sitting Exercises foot ev Resistance L3 TB Reps/Minutes 10 foot inv Resistance L3 TB Reps/Minutes 10 Standing Exercises 2 Standing Exercise Name wall squat Reps/Minutes 15 x4 1 Standing Exercise Name 8 step up Reps/Minutes 2x10 Comments difficult HC stretch Standing Exercise Name CARSON Reps/Minutes 2x Comments tyler and unil; bent and straight knee Manual Therapy Treatment Soft Tissue Mobilization gastroc, soleus Body Location left gastroc, soleus Mobilization Type Rolling Strumming Intensity/Depth Moderate Body Position right sidelying Neuro Re-Education Treatment Balance Activities tandem stand Reps/Duration 2 min SLS Reps/Duration 2x ea BOSU lunge Reps/Duration 12x tyler BOSU Details standing bal, weight-shifts Reps/Duration 3 min PT-OP-R Modalities Start: 04/23/18 07:57 Freq: Status: Active Protocol: Document 06/23/18 09:45 AMB (Rec: 06/23/18 12:48 AMB [id number]) Iontophoresis Treatment Left Ankle Treatment Medication Dexamethasone (-) Medication Amount (mL) (ml) 1 Medication Dosage 4mg/ml Active Electrode Placement left Achilles insertion Treatment Duration (minutes) 3 Ultrasound Therapy Treatment left achilles Treatment Duration (minutes) 8 Patient Position Sidelying Coupling Medium Ultrasound Gel Frequency Setting (mHz) 1 Mode Setting Pulsed Duty Cycle 50% Intensity Setting (w/cm2) 1.0 PT-OP-T Assessment and Plan Start: 04/23/18 07:57 Freq: Status: Active Protocol: Document 06/26/18 11:20 [facility] (Rec: 06/26/18 12:08 [facility] [id number]) Physical Therapy Assessment Goals Pain Shelter Goal (LTG) decrease pain to no greater than 1/10 06/03/18: good goal progress 06/26/18: goal achieved ROM Shelter Goal (LTG) patient to demonstrate left ankle df 10 degrees 06/03/18: good goal progress 06/26/18: goal achieved Gait Psychiatric Aides Teacher Goal (LTG) patient able to ambulate on level and uneven surfaces for usual distances without limp 06/03/18: has not tried uneven surfaces yet 06/26/18: goal 75% achieved Activity tolerance Shelter Goal (LTG) Patient able to resume all usual activities with minimal to no pain 06/03/18: goal progress 06/26/18: 75% achieved Assessment Summary Assessment Goals mostly achieved, patient should do well with continued HEP and icing. Ready for discharge from PT. Physical Therapy Plan Discharge Physical Therapy Discharge Reasons Goals Met
--- NOTE | 2018-06-26 12:08 | PT.OPDS ---
Current Diagnoses Achilles tendinitis, left leg (06/26/18) Provider Visit Care Team Role Provider Type Tea Alanis MD Primary Care Provider Physician Specialty: Internal Medicine Address: [address] [place] [address], [id number] Email: Sofy Triplett DPM Attending Provider Non-Staff Specialty: Podiatry Address: [address] [place], [phone] Email: Visit Number Visit Number 17 Discharge Summary PT-OP-B Current Condition Start: 04/23/18 07:57 Freq: Status: Active Protocol: Document 04/23/18 08:19 SAK (Rec: 04/23/18 09:03 [facility]AK [id number]) Current Condition History of Current Condition Onset Date 1 yr Current Complaints left heel pain History of Current Condition gradual onset function- limiting left heel pain which patient reports seemed to come on while she was on vacation which included a lot of walking and hiking. Pain improved with injection but has gradually returned. Has been resting, wearing shoes without backs. Initially reports she did lots of icing and stretching as recommended but not much recently due to uncertainty about whether it was helping. States limping due to heel pain has increased her back pain. Frustrated by persistent pain. Prior Treatments and Tests Injection left heel 12/11 with improvement but gradual return of pain. Wore boot for 1 month, now wears night splint. No squattingl, lunges,, stairs, or hills per physician recommendation. Went to IR for scraping therapy without benefit. Wearing heel lifts and heel pads . Also wears soft ankle brace at times which she reports is of some benefit. Treatment Goals Patient/Caregiver Goals Minimize pain and return to more active lifestyle Prior Functional Status Baseline Function- ADL's Independent Baseline Function- Mobility Independent Baseline Function- Gait independent, minimal pain Current Functional Impairments (Reported) Functional Limitations- ADL's painful Functional Limitations- Mobility/Gait painful, no elevation, limited distance Personal Factors Other Personal Factors That May Effect LBP, shoulder fracture 08/11. Therapy/Recovery PT-OP-C Subjective Start: 04/23/18 07:57 Freq: Status: Active Protocol: Document 06/26/18 11:20 SAK (Rec: 06/26/18 12:08 [facility] [id number]) OP-PT Subjective Patient Comments Patient Comments Reports feeling 75% better, able to walk barefoot in house , minimal pain. PT-OP-G Mobility & Gait Start: 04/23/18 07:57 Freq: Status: Active Protocol: Document 04/23/18 08:19 SAK (Rec: 04/23/18 16:55 [facility] [id number]) OP Gait Assessment Gait Gait Assistance Required: Independent Assistive Devices Assistive Device None Gait Deviations General Gait Pattern Antalgic Factors Limiting Gait Function Factors Limiting Gait Function Limited Range of Motion Pain PT-OP-J Posture/Palpation/Skin Start: 04/23/18 07:57 Freq: Status: Active Protocol: Document 04/23/18 08:19 SAK (Rec: 04/23/18 16:57 [facility] [id number]) Palpation Assessment Location left achilles Palpation Findings Tenderness Palpation Details TTP Achilles insertion, posterior to medial malleolus PT-OP-K Range of Motion Start: 04/23/18 07:57 Freq: Status: Active Protocol: Document 04/23/18 08:19 [facility] (Rec: 04/23/18 16:55 [facility] [id number]) Knee Goniometric Range of Motion Knee ROM Limitations Comments WNL tyler Ankle and Foot Goniometric Range of Motion Ankle and Foot Measured in Degrees Left Ankle/Foot ROM WFL No Testing Position Sitting Dorsiflexion with Knee Flexed 0 Dorsiflexion with Knee Extended 5 Plantarflexion 55 Inversion 25 Eversion 20 right Testing Position Sitting Dorsiflexion with Knee Flexed 10 Dorsiflexion with Knee Extended 5 Plantarflexion 55 Inversion 25 Eversion 20 Ankle and Foot ROM Limitations ROM Limitations Soft Tissue Tightness Pain PT-OP-M Strength Start: 04/23/18 07:57 Freq: Status: Active Protocol: Document 04/23/18 08:19 [facility]AK (Rec: 04/23/18 16:58 [facility] [id number]) Ankle/Foot Strength Ankle and Foot Manual Muscle Testing Left Dorsiflexion (L4) 4+ Good+ Plantarflexion (S1) 4 Good Inversion 4 Good Eversion (S1) 4 Good Reason Not Measured Pain Right Dorsiflexion (L4) 5 Normal Plantarflexion (S1) 5 Normal Inversion 5 Normal Eversion (S1) 5 Normal PT-OP-T Assessment and Plan Start: 04/23/18 07:57 Freq: Status: Active Protocol: Document 06/26/18 11:20 [facility] (Rec: 06/26/18 12:08 [facility]AK [id number]) Physical Therapy Assessment Goals 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) decrease pain to no greater than 1/10 06/03/18: good goal progress 06/26/18: goal achieved ROM Penitentiary Goal (LTG) patient to demonstrate left ankle df 10 degrees 06/03/18: good goal progress 06/26/18: goal achieved Gait Penitentiary Goal (LTG) patient able to ambulate on level and uneven surfaces for usual distances without limp 06/03/18: has not tried uneven surfaces yet 06/26/18: goal 75% achieved 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 Ready for discharge from PT. Physical Therapy Plan Discharge Physical Therapy Discharge Reasons Goals Met
== END 2018-06-26 14:15 ==
LOC: PHYS 11:15
PROVIDERS: PCP Internal Medicine; Visit Provider Podiatrist
DX: M76.62 Achilles tendinitis, left leg (principal)
CPT/HCPCS: 97035; 97110; 97140; 97162